=== PATIENT | female | born 1935 | race African-American/Black ===

== ENCOUNTER 2023-05-19 07:35 | Inpatient (IN) | payer OTHER ==
[2023-05-19 09:21] LABS: EPI CELLS 19 /uL (0-25.1); HYALINE CASTS 1 /uL (0-3.1); URINE APPEARANCE TURBID; URINE BACTERIA 2721 /uL (0-1359); URINE BILIRUBIN NEGATIVE (NEGATIVE); URINE COLOR ORANGE; URINE GLUCOSE (UA) NEGATIVE (NEGATIVE); URINE KETONE NEGATIVE (NEGATIVE); URINE LEUK ESTERASE 3+ (NEGATIVE); URINE NITRITE POSITIVE (NEGATIVE); URINE PROTEIN 3+ (NEGATIVE); URINE RBC 4374 /uL (0-23.9); URINE UROBILINOGEN 0.2 mg/dL (0.2-1.0); URINE WBC 3821 /uL (0-25.8)
[2023-05-19] MEDS ORDERED: CEFTRIAXONE 1 GM in DEXTROSE 5%-WATER - 100 ML IVPB ONE (11:10)
[2023-05-19] MEDS ORDERED: CEFTRIAXONE 1 GM/50 ML BAG ONE (11:20)
[2023-05-19 11:40] LABS: INR 1.8 (0.83-1.09); PROTHROMBIN TIME (PATIENT) 20.8 SEC (9.7-13.0)
[2023-05-19 11:51] LABS: POTASSIUM 5.6 mmol/L (3.5-5.1)
[2023-05-19 11:54] LABS: ALBUMIN 2.9 g/dl (3.4-5.0); BLOOD UREA NITROGEN 70.8 mg/dL (7-18); CALCIUM 8.3 mg/dL (8.5-10.1); MAGNESIUM 2.1 mg/dL (1.8-2.4)
[2023-05-19 11:57] LABS: PHOSPHOROUS 4.4 mg/dL (2.5-4.9)
[2023-05-19 11:59] LABS: BILIRUBIN,TOTAL 0.9 mg/dL (0.2-1); TOT PROT 6.7 g/dl (6.4-8.2)
[2023-05-19 12:31] LABS: BASO % 0.5 % (0-2.0); EOS % 2.5 % (0-4.5); HEMOGLOBIN 10.3 GM/dL (10.7-15.3); LYMPH % 27.1 % (8-40); MCH 28.5 pg (25.7-33.7); MCHC 31.4 g/dl (32.0-36.0); MEAN PLT VOLUME 9.3 fl (7.5-11.1); MONO % 19.6 % (3.8-10.2); NEUT % 50.3 % (42.8-82.8); PLATELET COUNT 260 10^3/uL (134-434); RBC 3.62 M/mm3 (3.60-5.2); WHITE BLOOD COUNT 4.2 K/mm3 (4.0-10.0)
[2023-05-19] MEDS ORDERED: SODIUM CHLORIDE 0.9% 500 ML INFUS.BAG IV ONE (13:31)
[2023-05-19] MEDS ORDERED: SODIUM ZIRCONIUM CYCLOSILICATE (LOKELMA) 5 GM PACKET PO ONE (14:41)
[2023-05-19] MEDS ORDERED: SODIUM ZIRCONIUM CYCLOSILICATE (LOKELMA) 10 GM PACKET ONE ×2 (14:49→16:04)
[2023-05-19] MEDS ORDERED: FUROSEMIDE 40 MG/4 ML INJECTABLE VIAL IVPUSH ONE (15:30)
[2023-05-19] MEDS ORDERED: FUROSEMIDE 40 MG/4 ML INJECTABLE VIAL ONE (16:05)
[2023-05-19 20:46] VITALS: BMI 21.1
[2023-05-20 07:55] LABS: BASO % 0.5 % (0-2.0); EOS % 3.6 % (0-4.5); HEMATOCRIT 31.2 % (32.4-45.2); HEMOGLOBIN 9.6 GM/dL (10.7-15.3); LYMPH % 23.2 % (8-40); MCH 27.9 pg (25.7-33.7); MCHC 30.8 g/dl (32.0-36.0); MEAN CELL VOLUME 90.8 fl (80-96); MEAN PLT VOLUME 9.3 fl (7.5-11.1); MONO % 19.7 % (3.8-10.2); PLATELET COUNT 288 10^3/uL (134-434); RBC 3.43 M/mm3 (3.60-5.2); RDW 17.7 % (11.6-15.6); WHITE BLOOD COUNT 4.4 K/mm3 (4.0-10.0)
[2023-05-20 08:23] LABS: CALCIUM 8.1 mg/dL (8.5-10.1)
[2023-05-20 08:24] LABS: ALBUMIN 2.5 g/dl (3.4-5.0)
[2023-05-20 08:27] LABS: CREATININE 3.4 mg/dL (0.55-1.3)
[2023-05-20 08:29] LABS: BILIRUBIN,TOTAL 0.5 mg/dL (0.2-1); TOT PROT 5.9 g/dl (6.4-8.2)
[2023-05-20] MEDS: CEFTRIAXONE 1 GM in DEXTROSE 5%-WATER - 50 ML IVPB SCH (09:17)
[2023-05-20] MEDS ORDERED: FUROSEMIDE 40 MG/4 ML INJECTABLE VIAL IVPUSH ONE (13:45)
[2023-05-20] MEDS ORDERED: SODIUM ZIRCONIUM CYCLOSILICATE (LOKELMA) 5 GM PACKET PO ONE (14:41)
[2023-05-20] MEDS ORDERED: HEPARIN NA (PORCINE) 5,000 UNITS/ML 1ML VIAL SQ SCH (22:00)
[2023-05-21 07:46] LABS: BASO % 0.6 % (0-2.0); EOS % 4.5 % (0-4.5); HEMATOCRIT 30.7 % (32.4-45.2); HEMOGLOBIN 9.5 GM/dL (10.7-15.3); MCH 28.1 pg (25.7-33.7); MEAN CELL VOLUME 90.6 fl (80-96); MEAN PLT VOLUME 9.1 fl (7.5-11.1); NEUT % 54.9 % (42.8-82.8); PLATELET COUNT 279 10^3/uL (134-434); RBC 3.38 M/mm3 (3.60-5.2); RDW 17.1 % (11.6-15.6); WHITE BLOOD COUNT 5.1 K/mm3 (4.0-10.0)
[2023-05-21 07:57] LABS: POTASSIUM 5.4 mmol/L (3.5-5.1)
[2023-05-21 08:01] LABS: CALCIUM 7.9 mg/dL (8.5-10.1)
[2023-05-21 08:02] LABS: ALBUMIN 2.4 g/dl (3.4-5.0); BLOOD UREA NITROGEN 59.6 mg/dL (7-18)
[2023-05-21 08:07] LABS: BILIRUBIN,TOTAL 0.4 mg/dL (0.2-1); TOT PROT 5.6 g/dl (6.4-8.2)
[2023-05-21] MEDS: CEFTRIAXONE 1 GM in DEXTROSE 5%-WATER - 50 ML IVPB SCH (09:42)
[2023-05-21] MEDS ORDERED: VANCOMYCIN 1,000 MG in DEXTROSE 5%-WATER - 250 ML IVPB ONE (16:23)
[2023-05-21] MEDS ORDERED: AMPICILLIN - 2 GM in SODIUM CHLORIDE 100 ML IVPB SCH (16:30)
[2023-05-21] MEDS ORDERED: DAPTOMYCIN 400 MG in SODIUM CHLORIDE 50 ML IVPB ONE (16:31)
[2023-05-21] MEDS ORDERED: DEXTROSE 5%-WATER - 1,000 ML IV SCH (16:45)
[2023-05-21] MEDS: DEXTROSE 5%-WATER - 1,000 ML IV SCH (18:01)
[2023-05-22] MEDS ORDERED: ACETAMINOPHEN 1000 MG/100 ML BAG IVPB ONE (03:39)
[2023-05-22] MEDS: DEXTROSE 5%-WATER - 1,000 ML IV SCH (06:01)
[2023-05-22] MEDS ORDERED: MIDAZOLAM HCL 2 MG/2 ML SINGLE DOSE VIAL ONE (06:47)
[2023-05-22] MEDS ORDERED: FENTANYL CITRATE/PF 50 MCG/ML VIAL ONE ×2 (06:47→08:18)
[2023-05-22] MEDS ORDERED: LIDOCAINE HCL/PF 2% SDV 5ML VIAL ONE (06:47)
[2023-05-22] MEDS ORDERED: PROPOFOL 20 ML ONE ×2 (06:47→07:21)
[2023-05-22] MEDS ORDERED: SODIUM CHLORIDE 0.9% P/F 10 ML VIAL IJ ONE (07:10)
[2023-05-22] MEDS ORDERED: LIDOCAINE HCL 2% JELLY 11 ML TP ONE (07:18)
[2023-05-22] MEDS ORDERED: DEXAMETHASONE SOD PHOSPHATE 4 MG/1 ML VIAL ONE (07:19)
[2023-05-22] MEDS ORDERED: ONDANSETRON 4 MG/2 ML VIAL ONE (07:19)
[2023-05-22] MEDS ORDERED: LABETALOL HCL 20 MG/4 ML VIAL ONE (07:22)
[2023-05-22] MEDS ORDERED: ONDANSETRON 4 MG/2 ML VIAL IVPUSH PRN (08:06)
[2023-05-22] MEDS ORDERED: SODIUM CHLORIDE 1,000 ML IV SCH (08:15)
[2023-05-22 08:16] LABS: POTASSIUM 4.6 mmol/L (3.5-5.1)
[2023-05-22] MEDS ORDERED: DEXTROSE 5%-WATER - 1,000 ML IV SCH (08:22)
[2023-05-22 08:24] LABS: ALBUMIN 2.5 g/dl (3.4-5.0)
[2023-05-22 08:25] LABS: BLOOD UREA NITROGEN 47.7 mg/dL (7-18)
[2023-05-22 08:27] LABS: CREATININE 2.5 mg/dL (0.55-1.3)
[2023-05-22 08:31] LABS: BILIRUBIN,TOTAL 0.7 mg/dL (0.2-1); TOT PROT 5.9 g/dl (6.4-8.2)
[2023-05-22] MEDS ORDERED: CEFTRIAXONE 1 GM in DEXTROSE 5%-WATER - 50 ML IVPB SCH (10:00)
[2023-05-22 12:07] LABS: BASO % 0.9 % (0-2.0); EOS % 0.7 % (0-4.5); HEMATOCRIT 34.9 % (32.4-45.2); HEMOGLOBIN 10.7 GM/dL (10.7-15.3); LYMPH % 7.2 % (8-40); MCHC 30.6 g/dl (32.0-36.0); MEAN CELL VOLUME 91.6 fl (80-96); NEUT % 83.2 % (42.8-82.8); RBC 3.81 M/mm3 (3.60-5.2); RDW 18.1 % (11.6-15.6); WHITE BLOOD COUNT 7.4 K/mm3 (4.0-10.0)
[2023-05-22] MEDS: SODIUM CHLORIDE 0.45% 1,000 ML IV SCH (17:42)
[2023-05-23] MEDS: DAPTOMYCIN 400 MG in SODIUM CHLORIDE 50 ML IVPB SCH (16:03)
[2023-05-23] MEDS: SODIUM CHLORIDE 0.45% 1,000 ML IV SCH (16:03)
[2023-05-23 16:26] LABS: BASO % 0.1 % (0-2.0); EOS % 0.5 % (0-4.5); HEMATOCRIT 30.4 % (32.4-45.2); HEMOGLOBIN 9.2 GM/dL (10.7-15.3); MCHC 30.3 g/dl (32.0-36.0); MEAN CELL VOLUME 92.2 fl (80-96); MONO % 18.6 % (3.8-10.2); NEUT % 66.8 % (42.8-82.8); PLATELET COUNT 249 10^3/uL (134-434); RDW 18.4 % (11.6-15.6); WHITE BLOOD COUNT 7.5 K/mm3 (4.0-10.0)
[2023-05-23 16:39] LABS: POTASSIUM 4.9 mmol/L (3.5-5.1)
[2023-05-23 16:42] LABS: CALCIUM 7.5 mg/dL (8.5-10.1)
[2023-05-23 16:43] LABS: ALBUMIN 2.2 g/dl (3.4-5.0); BLOOD UREA NITROGEN 55.8 mg/dL (7-18)
[2023-05-23 16:46] LABS: CREATININE 2.7 mg/dL (0.55-1.3)
[2023-05-23 16:47] LABS: BILIRUBIN,TOTAL 0.3 mg/dL (0.2-1); TOT PROT 5.6 g/dl (6.4-8.2)
[2023-05-24 06:52] VITALS: RESP 20
[2023-05-24] MEDS ORDERED: DAPTOMYCIN 400 MG in SODIUM CHLORIDE 50 ML IVPB SCH (16:00)
[2023-05-25] MEDS ORDERED: DAPTOMYCIN 400 MG in SODIUM CHLORIDE 50 ML IVPB ONE (10:47)
[2023-05-25] MEDS: DAPTOMYCIN 400 MG in SODIUM CHLORIDE 50 ML IVPB SCH (16:22)
[2023-05-25 18:27] VITALS: BP 144/56; PULSE 81; TEMP 97.8
== END 2023-05-25 21:59 | DRG 659 ==
LOC: JER 07:35 → JERBED 13:28 → J4W 20:51 → OBSVTOIN 05-20 09:58 → J4W 05-21 11:59
PROVIDERS: ADMIT Family Medicine; ATTEND Family Medicine
PROC: 0T788DZ Dilation of Bilateral Ureters with Intraluminal Device, Via Natural or Artificial Opening Endoscopic (ICD-10-PCS; principal; 2023-05-22 07:00)
PROC: BT14YZZ Fluoroscopy of Kidneys, Ureters and Bladder using Other Contrast (ICD-10-PCS; 2023-05-22 07:00)
PROC: 0TP98DZ Removal of Intraluminal Device from Ureter, Via Natural or Artificial Opening Endoscopic (ICD-10-PCS; 2023-05-22 07:00)
DX: N39.0 Urinary tract infection, site not specified (principal); I50.33 Acute on chronic diastolic (congestive) heart failure; E87.0 Hyperosmolality and hypernatremia; N17.9 Acute kidney failure, unspecified; R64 Cachexia; N13.30 Unspecified hydronephrosis; I11.0 Hypertensive heart disease with heart failure; E78.5 Hyperlipidemia, unspecified; I48.91 Unspecified atrial fibrillation; E87.5 Hyperkalemia; D64.9 Anemia, unspecified; Z68.21 Body mass index [BMI] 21.0-21.9, adult
CPT/HCPCS: 0241U-QW; 36415; 71045-TC-FY; 71250-TC; 74176-TC; 76000-TC-FY; 76775-TC; 80048; 80053; 81003; 82550; 82728; 83540; 83735; 84100; 84443; 84466; 84484; 85025; 85610; 85730; 87040; 87086; 87186; 87633; 87899; 88300-TC; 93005; 93010; 93306-TC; 94760; 99285-25; C2617; G0378; J0878

== ENCOUNTER 2023-05-30 03:28 | Inpatient (IN) | payer OTHER ==
[2023-05-30 05:00] LABS: CHLORIDE 112 mmol/L (98-107); SODIUM 139 mmol/L (136-145)
[2023-05-30 05:02] LABS: ALBUMIN 2.5 g/dl (3.4-5.0); CALCIUM 7.4 mg/dL (8.5-10.1); CO2 20 mmol/L (21-32); GLUCOSE,RANDOM 104 mg/dL (74-106)
[2023-05-30 05:05] LABS: CREATININE 4.7 mg/dL (0.55-1.3); SGOT/AST 34 U/L (15-37); SGPT/ALT 36 U/L (13-61)
[2023-05-30 05:07] LABS: BILIRUBIN,TOTAL 0.2 mg/dL (0.2-1); TOT PROT 5.8 g/dl (6.4-8.2)
[2023-05-30 05:09] LABS: ALK PHOS 164 U/L (45-117)
[2023-05-30] MEDS ORDERED: SODIUM CHLORIDE 0.9% 500 ML INFUS.BAG IV ONE (05:13)
[2023-05-30 05:20] LABS: ANION GAP 8 mmol/L (4-13); BLOOD UREA NITROGEN 87.9 mg/dL (7-18); POTASSIUM 6.2 mmol/L (3.5-5.1)
[2023-05-30 06:22] LABS: HEMATOCRIT 30.9 % (32.4-45.2); HEMOGLOBIN 9.5 GM/dL (10.7-15.3); MCH 28.3 pg (25.7-33.7); MCHC 30.9 g/dl (32.0-36.0); MEAN CELL VOLUME 91.5 fl (80-96); MEAN PLT VOLUME 9.4 fl (7.5-11.1); PLATELET COUNT 241 10^3/uL (134-434); RBC 3.37 M/mm3 (3.60-5.2); RDW 17.3 % (11.6-15.6); WHITE BLOOD COUNT 5.4 K/mm3 (4.0-10.0)
[2023-05-30 06:41] LABS: CALCIUM 7.6 mg/dL (8.5-10.1); CHLORIDE 113 mmol/L (98-107); CO2 20 mmol/L (21-32); SODIUM 141 mmol/L (136-145)
[2023-05-30 06:43] LABS: BLOOD UREA NITROGEN 88.1 mg/dL (7-18); GLUCOSE,RANDOM 96 mg/dL (74-106)
[2023-05-30 06:45] LABS: CREATININE 4.6 mg/dL (0.55-1.3)
[2023-05-30 06:56] LABS: ANION GAP 8 mmol/L (4-13); POTASSIUM 6.4 mmol/L (3.5-5.1)
[2023-05-30] MEDS ORDERED: DEXTROSE 50%-WATER - 25 GM/50 ML VIAL IVPUSH ONE (06:57)
[2023-05-30] MEDS ORDERED: INSULIN REGULAR HUMAN 100 UNITS/ML *VIAL IVPUSH ONE (06:57)
[2023-05-30] MEDS ORDERED: CALCIUM GLUCONATE 10% - 1,000 MG/10 ML VIAL IVPB ONE (06:58)
[2023-05-30] MEDS ORDERED: CALCIUM GLUC IN NACL, ISO-OSM 1 GM/50 ML BAG IVPB ONE (07:12)
[2023-05-30] MEDS ORDERED: DEXTROSE 50%-WATER 25 GM/50 ML DISP.SYRIN ONE (07:13)
[2023-05-30] MEDS ORDERED: INSULIN REGULAR HUMAN 100 UNITS/ML *VIAL ONE (07:14)
[2023-05-30 08:42] LABS: ANISOCYTOSIS 0; HELMET CELLS 0; HOWELL-JOLLY BODIES 0; MACROCYTOSIS 0; OVALOCYTE 0; ROULEAU 0; SICKELED CELLS 0; TARGET CELLS 0; TEAR DROP CELLS 0; TOXIC GRANULATION 0
[2023-05-30 09:01] LABS: PH,URINE 5.5 (5.0-8.0); URINE APPEARANCE TURBID; URINE BILIRUBIN NEGATIVE (NEGATIVE); URINE COLOR RED; URINE GLUCOSE (UA) NEGATIVE (NEGATIVE); URINE KETONE NEGATIVE (NEGATIVE); URINE PROTEIN 3+ (NEGATIVE); URINE UROBILINOGEN 0.2 mg/dL (0.2-1.0)
[2023-05-30 09:02] LABS: EPI CELLS 58 /uL (0-25.1); HYALINE CASTS 856 /uL (0-3.1); URINE BACTERIA 1317 /uL (0-1359); URINE LEUK ESTERASE 3+ (NEGATIVE); URINE NITRITE NEGATIVE (NEGATIVE); URINE RBC 3508 /uL (0-23.9); URINE WBC 23861 /uL (0-25.8)
[2023-05-30] MEDS: HEPARIN NA (PORCINE) 5,000 UNITS/ML 1ML VIAL SQ SCH ×2 (12:38→21:43)
[2023-05-30] MEDS ORDERED: HEPARIN NA (PORCINE) 5,000 UNITS/ML 1ML VIAL ONE (12:51)
[2023-05-30 13:01] LABS: POTASSIUM 5.9 mmol/L (3.5-5.1)
[2023-05-30 13:03] LABS: BLOOD UREA NITROGEN 86.3 mg/dL (7-18); CALCIUM 7.8 mg/dL (8.5-10.1)
[2023-05-30 13:06] LABS: CREATININE 4.5 mg/dL (0.55-1.3)
[2023-05-30 13:13] LABS: POTASSIUM 5.6 mmol/L (3.5-5.1)
[2023-05-30 13:14] LABS: CALCIUM 7.8 mg/dL (8.5-10.1)
[2023-05-30 13:16] LABS: BLOOD UREA NITROGEN 89.5 mg/dL (7-18)
[2023-05-30 13:19] LABS: CREATININE 4.5 mg/dL (0.55-1.3)
[2023-05-30] MEDS ORDERED: SODIUM ZIRCONIUM CYCLOSILICATE (LOKELMA) 10 GM PACKET ONE (13:51)
[2023-05-30] MEDS: SODIUM ZIRCONIUM CYCLOSILICATE (LOKELMA) 5 GM PACKET PO SCH (13:57)
[2023-05-30] MEDS ORDERED: CEFTRIAXONE 1 GM/50 ML BAG ONE (15:18)
[2023-05-30] MEDS: CEFTRIAXONE 1 GM in DEXTROSE 5%-WATER - 50 ML IVPB SCH (15:21)
[2023-05-30] MEDS ORDERED: ALBUTEROL SO4 2.5/IPRATROPIUM 0.5 INH SOL 3 ML VIAL.NEB. NEB ONE (20:27)
[2023-05-30] MEDS: ALBUTEROL SO4 2.5/IPRATROPIUM 0.5 INH SOL 3 ML VIAL.NEB. NEB SCH (20:30)
[2023-05-30] MEDS: ATORVASTATIN CA 20 MG TABLET (FP) PO SCH (21:43)
[2023-05-30] MEDS: cloNIDine HCL 0.1 MG TABLET PO SCH (21:43)
[2023-05-30] MEDS ORDERED: APIXABAN 2.5 MG TABLET PO SCH (22:00)
[2023-05-30] MEDS ORDERED: APIXABAN PO SCH (22:00)
[2023-05-30] MEDS ORDERED: [UNRECOGNIZED DRUG - OTHER] PO SCH (22:00)
[2023-05-30] MEDS ORDERED: ATORVASTATIN CALCIUM PO SCH (22:00)
[2023-05-30 23:31] VITALS: BMI 22.1
[2023-05-31] MEDS: ACETAMINOPHEN 325 MG TABLET (FP) PO PRN ×2 (01:40→11:58)
[2023-05-31] MEDS: ALBUTEROL SO4 2.5/IPRATROPIUM 0.5 INH SOL 3 ML VIAL.NEB. NEB SCH ×2 (07:00→21:00)
[2023-05-31 09:10] LABS: HEMATOCRIT 30.8 % (32.4-45.2); HEMOGLOBIN 9.5 GM/dL (10.7-15.3); MCHC 30.7 g/dl (32.0-36.0); MEAN CELL VOLUME 91.4 fl (80-96); MEAN PLT VOLUME 9.4 fl (7.5-11.1); PLATELET COUNT 232 10^3/uL (134-434); RBC 3.37 M/mm3 (3.60-5.2); RDW 17.1 % (11.6-15.6); WHITE BLOOD COUNT 4.5 K/mm3 (4.0-10.0)
[2023-05-31 09:33] LABS: POTASSIUM 5.4 mmol/L (3.5-5.1)
[2023-05-31 09:35] LABS: CALCIUM 8.5 mg/dL (8.5-10.1)
[2023-05-31 09:36] LABS: ALBUMIN 2.6 g/dl (3.4-5.0)
[2023-05-31 09:39] LABS: CREATININE 4.5 mg/dL (0.55-1.3)
[2023-05-31 09:40] LABS: BILIRUBIN,TOTAL 0.4 mg/dL (0.2-1); TOT PROT 6.1 g/dl (6.4-8.2)
[2023-05-31] MEDS: SODIUM ZIRCONIUM CYCLOSILICATE (LOKELMA) 5 GM PACKET PO SCH (10:13)
[2023-05-31] MEDS: CEFTRIAXONE 1 GM in DEXTROSE 5%-WATER - 50 ML IVPB SCH (10:13)
[2023-05-31] MEDS: METOPROLOL TARTRATE 25 MG TABLET (FP) PO SCH (10:14)
[2023-05-31] MEDS: HEPARIN NA (PORCINE) 5,000 UNITS/ML 1ML VIAL SQ SCH (10:14)
[2023-05-31] MEDS: cloNIDine HCL 0.1 MG TABLET PO SCH ×2 (10:14→21:46)
[2023-05-31 11:02] LABS: ANISOCYTOSIS 0; HELMET CELLS 0; HOWELL-JOLLY BODIES 0; MACROCYTOSIS 0; OVALOCYTE 0; ROULEAU 0; SICKELED CELLS 0; TARGET CELLS 0; TEAR DROP CELLS 0; TOXIC GRANULATION 0
[2023-05-31] MEDS: APIXABAN 2.5 MG TABLET PO SCH ×3 (12:33→21:46)
[2023-05-31] MEDS: ATORVASTATIN CA 20 MG TABLET (FP) PO SCH (21:46)
[2023-06-01] MEDS: ALBUTEROL SO4 2.5/IPRATROPIUM 0.5 INH SOL 3 ML VIAL.NEB. NEB SCH ×2 (07:48→20:05)
[2023-06-01 08:25] LABS: HEMATOCRIT 27.9 % (32.4-45.2); HEMOGLOBIN 8.8 GM/dL (10.7-15.3); MCH 28.5 pg (25.7-33.7); MCHC 31.4 g/dl (32.0-36.0); MEAN CELL VOLUME 90.8 fl (80-96); MEAN PLT VOLUME 9.4 fl (7.5-11.1); PLATELET COUNT 204 10^3/uL (134-434); RBC 3.08 M/mm3 (3.60-5.2); RDW 17.1 % (11.6-15.6); WHITE BLOOD COUNT 5.8 K/mm3 (4.0-10.0)
[2023-06-01 08:40] LABS: CHLORIDE 116 mmol/L (98-107); SODIUM 140 mmol/L (136-145)
[2023-06-01 08:48] LABS: CALCIUM 8.4 mg/dL (8.5-10.1)
[2023-06-01 08:49] LABS: CO2 20 mmol/L (21-32); GLUCOSE,RANDOM 97 mg/dL (74-106)
[2023-06-01 08:52] LABS: CREATININE 4.9 mg/dL (0.55-1.3)
[2023-06-01 08:55] LABS: ANION GAP 4 mmol/L (4-13); BLOOD UREA NITROGEN 105.4 mg/dL (7-18); POTASSIUM 6.4 mmol/L (3.5-5.1)
[2023-06-01] MEDS: SODIUM ZIRCONIUM CYCLOSILICATE (LOKELMA) 5 GM PACKET PO SCH ×3 (09:08→21:37)
[2023-06-01 09:35] LABS: ANISOCYTOSIS 1+; MACROCYTOSIS 1+; OVALOCYTE 2+
[2023-06-01] MEDS ORDERED: CALCIUM GLUCONATE 10% - 1,000 MG/10 ML VIAL IVPB ONE (10:43)
[2023-06-01] MEDS ORDERED: INSULIN REGULAR HUMAN 100 UNITS/ML *VIAL IVPUSH ONE (10:43)
[2023-06-01] MEDS ORDERED: DEXTROSE 50%-WATER 25 GM/50 ML DISP.SYRIN IVPUSH ONE (10:44)
[2023-06-01] MEDS ORDERED: SODIUM ZIRCONIUM CYCLOSILICATE (LOKELMA) 5 GM PACKET PO SCH (10:45)
[2023-06-01] MEDS ORDERED: SODIUM BICARBONATE 8.4% 50 MEQ/50 ML DISP.SYRIN IVPUSH ONE (10:45)
[2023-06-01] MEDS ORDERED: SODIUM BICARBONATE 8.4% 50 MEQ/50 ML VIAL IVPUSH ONE (11:15)
[2023-06-01] MEDS: APIXABAN 2.5 MG TABLET PO SCH (11:16)
[2023-06-01] MEDS: METOPROLOL TARTRATE 25 MG TABLET (FP) PO SCH (11:17)
[2023-06-01] MEDS: cloNIDine HCL 0.1 MG TABLET PO SCH (11:17)
[2023-06-01] MEDS: CEFTRIAXONE 1 GM in DEXTROSE 5%-WATER - 50 ML IVPB SCH (11:17)
[2023-06-01] MEDS: SODIUM CHLORIDE 0.45% 1,000 ML IV SCH (11:18)
[2023-06-01] MEDS ORDERED: INSULIN (NOVOLOG) ASPART 100 UNITS/ML 10ML VIAL ONE (11:22)
[2023-06-02] MEDS: APIXABAN 2.5 MG TABLET PO SCH ×3 (00:08→21:20)
[2023-06-02] MEDS: ATORVASTATIN CA 20 MG TABLET (FP) PO SCH ×2 (00:09→21:20)
[2023-06-02] MEDS: cloNIDine HCL 0.1 MG TABLET PO SCH ×3 (00:11→21:20)
[2023-06-02] MEDS: SODIUM CHLORIDE 0.45% 1,000 ML IV SCH ×2 (00:21→11:09)
[2023-06-02] MEDS: ALBUTEROL SO4 2.5/IPRATROPIUM 0.5 INH SOL 3 ML VIAL.NEB. NEB SCH ×2 (07:45→20:45)
[2023-06-02 08:30] LABS: HEMATOCRIT 27.9 % (32.4-45.2); HEMOGLOBIN 8.7 GM/dL (10.7-15.3); MCH 28.3 pg (25.7-33.7); MCHC 31.2 g/dl (32.0-36.0); MEAN CELL VOLUME 90.7 fl (80-96); MEAN PLT VOLUME 9.7 fl (7.5-11.1); PLATELET COUNT 203 10^3/uL (134-434); RBC 3.08 M/mm3 (3.60-5.2); RDW 17.4 % (11.6-15.6); WHITE BLOOD COUNT 4.7 K/mm3 (4.0-10.0)
[2023-06-02 08:50] LABS: POTASSIUM 5.6 mmol/L (3.5-5.1)
[2023-06-02 08:52] LABS: CALCIUM 7.8 mg/dL (8.5-10.1)
[2023-06-02 08:53] LABS: ALBUMIN 2.3 g/dl (3.4-5.0); BLOOD UREA NITROGEN 98.7 mg/dL (7-18)
[2023-06-02 08:56] LABS: CREATININE 4.5 mg/dL (0.55-1.3)
[2023-06-02 08:57] LABS: BILIRUBIN,TOTAL 0.3 mg/dL (0.2-1); TOT PROT 5.7 g/dl (6.4-8.2)
[2023-06-02 10:05] LABS: ANISOCYTOSIS 1+; MACROCYTOSIS 0; OVALOCYTE 1+
[2023-06-02] MEDS: SODIUM ZIRCONIUM CYCLOSILICATE (LOKELMA) 5 GM PACKET PO SCH ×2 (10:17→23:27)
[2023-06-02] MEDS: CEFTRIAXONE 1 GM in DEXTROSE 5%-WATER - 50 ML IVPB SCH (10:17)
[2023-06-02] MEDS ORDERED: AMPICILLIN - 2 GM in SODIUM CHLORIDE 100 ML IVPB SCH (10:45)
[2023-06-02] MEDS ORDERED: FLUCONAZOLE 200 MG/NS 100 ML IVPB ONE (11:00)
[2023-06-02] MEDS ORDERED: VANCOMYCIN/WATER FOR INJ (PEG) 1,000 MG/200 ML BAG IVPB ONE (15:30)
[2023-06-02] MEDS ORDERED: FUROSEMIDE 40 MG/4 ML INJECTABLE VIAL IVPUSH ONE (18:45)
[2023-06-03] MEDS: ALBUTEROL SO4 2.5/IPRATROPIUM 0.5 INH SOL 3 ML VIAL.NEB. NEB SCH ×2 (07:50→19:26)
[2023-06-03 08:57] LABS: ALBUMIN 2.3 g/dl (3.4-5.0); BLOOD UREA NITROGEN 92.1 mg/dL (7-18); CALCIUM 7.9 mg/dL (8.5-10.1)
[2023-06-03 09:00] LABS: CREATININE 4.3 mg/dL (0.55-1.3)
[2023-06-03 09:02] LABS: BILIRUBIN,TOTAL 0.4 mg/dL (0.2-1); TOT PROT 5.8 g/dl (6.4-8.2)
[2023-06-03] MEDS: cloNIDine HCL 0.1 MG TABLET PO SCH ×2 (11:02→21:37)
[2023-06-03] MEDS: SODIUM ZIRCONIUM CYCLOSILICATE (LOKELMA) 5 GM PACKET PO SCH (11:02)
[2023-06-03] MEDS: APIXABAN 2.5 MG TABLET PO SCH (11:03)
[2023-06-03] MEDS: SODIUM CHLORIDE 0.45% 1,000 ML IV SCH (11:03)
[2023-06-03] MEDS ORDERED: FUROSEMIDE 40 MG/4 ML INJECTABLE VIAL IVPUSH ONE (12:07)
[2023-06-03] MEDS ORDERED: VANCOMYCIN/WATER FOR INJ (PEG) 1,000 MG/200 ML BAG IVPB ONE (15:17)
[2023-06-03] MEDS: FLUCONAZOLE 100 MG/NS 50 ML IVPB SCH (17:53)
[2023-06-03] MEDS: ATORVASTATIN CA 20 MG TABLET (FP) PO SCH (21:37)
[2023-06-04] MEDS: ALBUTEROL SO4 2.5/IPRATROPIUM 0.5 INH SOL 3 ML VIAL.NEB. NEB SCH ×2 (07:35→20:04)
[2023-06-04] MEDS ORDERED: SODIUM ZIRCONIUM CYCLOSILICATE (LOKELMA) 5 GM PACKET PO SCH (10:00)
[2023-06-04] MEDS: cloNIDine HCL 0.1 MG TABLET PO SCH ×2 (10:16→21:16)
[2023-06-04] MEDS: FLUCONAZOLE 100 MG/NS 50 ML IVPB SCH (10:17)
[2023-06-04 18:25] VITALS: RESP 18
[2023-06-04] MEDS: ATORVASTATIN CA 20 MG TABLET (FP) PO SCH (21:16)
[2023-06-05 02:42] VITALS: BP 135/56; PULSE 60; TEMP 98.3
[2023-06-05] MEDS ORDERED: FLUCONAZOLE 50 MG TABLET PO SCH (10:00)
== END 2023-06-05 02:10 | DRG 690 ==
LOC: JER 03:28 → INTOOBSV 05:47 → JERBED 05:47 → UNDOADMOB 05:47 → OBSVTOIN 05:47 → JERBED 11:12 → OBSVTOIN 11:12 → J7W 20:57
PROVIDERS: ADMIT Family Medicine; ATTEND Family Medicine
DX: N13.6 Pyonephrosis (principal); I13.0 Hypertensive heart and chronic kidney disease with heart failure and stage 1 through stage 4 chronic kidney disease, or unspecified chronic kidney disease; I50.32 Chronic diastolic (congestive) heart failure; E87.0 Hyperosmolality and hypernatremia; E87.5 Hyperkalemia; I48.0 Paroxysmal atrial fibrillation; I27.20 Pulmonary hypertension, unspecified; N18.5 Chronic kidney disease, stage 5; N17.9 Acute kidney failure, unspecified; M10.9 Gout, unspecified; B95.2 Enterococcus as the cause of diseases classified elsewhere
CPT/HCPCS: 36415; 74176-TC; 80048; 80053; 81003; 82728; 82962; 83540; 83550; 83735; 85025; 87040; 87077; 87086; 87186; 93005; 93010; 94640; 97116-GP; 97161-GP; 99285-25; G0463; G0480; J1644

== ENCOUNTER 2023-06-18 13:42 | Inpatient (IN) | payer OTHER ==
[2023-06-18 16:50] LABS: HEMATOCRIT 32.5 % (32.4-45.2); HEMOGLOBIN 9.9 GM/dL (10.7-15.3); MCH 27.9 pg (25.7-33.7); MCHC 30.5 g/dl (32.0-36.0); MEAN CELL VOLUME 91.6 fl (80-96); MEAN PLT VOLUME 8.7 fl (7.5-11.1); PLATELET COUNT 237 10^3/uL (134-434); RBC 3.54 M/mm3 (3.60-5.2); RDW 18.2 % (11.6-15.6); VENOUS BASE EXCESS -9.9 mmol/L (-2-2); VENOUS PCO2 48.8 mmHg (38-52); WHITE BLOOD COUNT 4.2 K/mm3 (4.0-10.0)
[2023-06-18 16:51] LABS: VENOUS PH 7.186 (7.310-7.410)
[2023-06-18 17:00] LABS: INR 1.11 (0.83-1.09); PROTHROMBIN TIME (PATIENT) 12.9 SEC (9.7-13.0)
[2023-06-18 17:02] LABS: ACTIVATED PTT 27.5 SECONDS (25.2-36.5)
[2023-06-18 17:08] LABS: CHLORIDE 118 mmol/L (98-107); POTASSIUM 5.4 mmol/L (3.5-5.1); SODIUM 145 mmol/L (136-145)
[2023-06-18 17:10] LABS: ALBUMIN 2.6 g/dl (3.4-5.0); ANION GAP 9 mmol/L (4-13); CO2 18 mmol/L (21-32); GLUCOSE,RANDOM 103 mg/dL (74-106); MAGNESIUM 2.2 mg/dL (1.8-2.4)
[2023-06-18 17:13] LABS: SGOT/AST 32 U/L (15-37); SGPT/ALT 28 U/L (13-61)
[2023-06-18 17:15] LABS: BILIRUBIN,TOTAL 0.4 mg/dL (0.2-1); TOT PROT 6.6 g/dl (6.4-8.2)
[2023-06-18 17:17] LABS: ALK PHOS 116 U/L (45-117)
[2023-06-18 17:41] LABS: ANISOCYTOSIS 2+; MACROCYTOSIS 0; OVALOCYTE 2+
[2023-06-18 18:33] VITALS: BMI 26.5
[2023-06-18] MEDS: FUROSEMIDE 40 MG/4 ML INJECTABLE VIAL IVPUSH SCH (18:35)
[2023-06-18] MEDS: ASPIRIN COATED 81 MG TABLET.EC PO SCH (18:35)
[2023-06-18] MEDS ORDERED: FUROSEMIDE 40 MG/4 ML INJECTABLE VIAL ONE (18:38)
[2023-06-18] MEDS ORDERED: ASPIRIN COATED 81 MG TABLET.EC ONE (18:38)
[2023-06-18 18:43] LABS: EPI CELLS 34 /uL (0-25.1); HYALINE CASTS 356 /uL (0-3.1); URINE APPEARANCE TURBID; URINE BILIRUBIN 1+ (NEGATIVE); URINE COLOR RED; URINE GLUCOSE (UA) NEGATIVE (NEGATIVE); URINE KETONE NEGATIVE (NEGATIVE); URINE LEUK ESTERASE 3+ (NEGATIVE); URINE NITRITE POSITIVE (NEGATIVE); URINE PROTEIN 3+ (NEGATIVE); URINE UROBILINOGEN 0.2 mg/dL (0.2-1.0); URINE WBC 8053 /uL (0-25.8)
[2023-06-18 19:32] LABS: URINE RBC 35418 /uL (0-23.9)
[2023-06-18 19:33] LABS: URINE BACTERIA 0.9 /uL (0-1359); YEAST FEW (NEGATIVE)
[2023-06-18] MEDS ORDERED: SODIUM ZIRCONIUM CYCLOSILICATE (LOKELMA) 10 GM PACKET ONE (23:24)
[2023-06-18] MEDS ORDERED: ATORVASTATIN CA 40 MG TABLET (FP) ONE (23:24)
[2023-06-18] MEDS: ATORVASTATIN CA 40 MG TABLET (FP) PO SCH (23:37)
[2023-06-18] MEDS: SODIUM ZIRCONIUM CYCLOSILICATE (LOKELMA) 5 GM PACKET PO SCH (23:37)
[2023-06-19] MEDS ORDERED: PIPERACILLIN/TAZOB 2.25 GM 2.25 GM/50 ML BAG IVPB ONE (07:58)
[2023-06-19] MEDS: PIPERACILLIN/TAZOB 2.25 GM 2.25 GM in DEXTROSE 5%-WATER - 50 ML IVPB SCH ×4 (09:10→18:25)
[2023-06-19] MEDS: ASPIRIN COATED 81 MG TABLET.EC PO SCH (11:19)
[2023-06-19] MEDS: FUROSEMIDE 40 MG/4 ML INJECTABLE VIAL IVPUSH SCH (11:39)
[2023-06-19] MEDS: SODIUM ZIRCONIUM CYCLOSILICATE (LOKELMA) 5 GM PACKET PO SCH (11:40)
[2023-06-19] MEDS ORDERED: FUROSEMIDE 40 MG/4 ML INJECTABLE VIAL ONE (11:41)
[2023-06-19] MEDS ORDERED: SODIUM ZIRCONIUM CYCLOSILICATE (LOKELMA) 10 GM PACKET ONE (11:41)
[2023-06-19] MEDS ORDERED: FLUCONAZOLE 200 MG/NS 100 ML IVPB ONE (17:25)
[2023-06-19] MEDS ORDERED: VANCOMYCIN/WATER FOR INJ (PEG) 1,000 MG/200 ML BAG IVPB ONE (17:30)
[2023-06-19] MEDS: ATORVASTATIN CA 40 MG TABLET (FP) PO SCH (22:07)
[2023-06-20] MEDS: PIPERACILLIN/TAZOB 2.25 GM 2.25 GM in DEXTROSE 5%-WATER - 50 ML IVPB SCH ×3 (02:21→17:46)
[2023-06-20] MEDS: SODIUM ZIRCONIUM CYCLOSILICATE (LOKELMA) 5 GM PACKET PO SCH (10:03)
[2023-06-20] MEDS: ASPIRIN COATED 81 MG TABLET.EC PO SCH (10:03)
[2023-06-20] MEDS: FUROSEMIDE 40 MG/4 ML INJECTABLE VIAL IVPUSH SCH (10:04)
[2023-06-20 19:17] LABS: CHLORIDE 120 mmol/L (98-107); POTASSIUM 4.9 mmol/L (3.5-5.1); SODIUM 151 mmol/L (136-145)
[2023-06-20 19:18] LABS: ANION GAP 7 mmol/L (4-13); CALCIUM 7.8 mg/dL (8.5-10.1); CO2 23 mmol/L (21-32); GLUCOSE,RANDOM 148 mg/dL (74-106)
[2023-06-20 19:22] LABS: CREATININE 4.1 mg/dL (0.55-1.3)
[2023-06-20 19:39] LABS: BLOOD UREA NITROGEN 104.5 mg/dL (7-18)
[2023-06-20] MEDS: ATORVASTATIN CA 40 MG TABLET (FP) PO SCH (21:13)
[2023-06-21] MEDS: PIPERACILLIN/TAZOB 2.25 GM 2.25 GM in DEXTROSE 5%-WATER - 50 ML IVPB SCH ×3 (01:13→17:19)
[2023-06-21] MEDS: ASPIRIN COATED 81 MG TABLET.EC PO SCH (09:26)
[2023-06-21] MEDS: FUROSEMIDE 40 MG/4 ML INJECTABLE VIAL IVPUSH SCH (09:26)
[2023-06-21] MEDS: SODIUM ZIRCONIUM CYCLOSILICATE (LOKELMA) 5 GM PACKET PO SCH (09:27)
[2023-06-21] MEDS ORDERED: FLUCONAZOLE 100 MG/NS 50 ML IVPB ONE (10:00)
[2023-06-21] MEDS: ATORVASTATIN CA 40 MG TABLET (FP) PO SCH (21:10)
[2023-06-22] MEDS: PIPERACILLIN/TAZOB 2.25 GM 2.25 GM in DEXTROSE 5%-WATER - 50 ML IVPB SCH ×3 (02:04→17:22)
[2023-06-22] MEDS: SODIUM ZIRCONIUM CYCLOSILICATE (LOKELMA) 5 GM PACKET PO SCH ×3 (10:44→14:19)
[2023-06-22] MEDS: ASPIRIN COATED 81 MG TABLET.EC PO SCH ×3 (10:44→14:11)
[2023-06-22 15:36] LABS: BASO % 0.6 % (0-2.0); EOS % 1.3 % (0-4.5); HEMATOCRIT 30.4 % (32.4-45.2); HEMOGLOBIN 9.2 GM/dL (10.7-15.3); LYMPH % 16.5 % (8-40); MCH 27.7 pg (25.7-33.7); MCHC 30.3 g/dl (32.0-36.0); MEAN CELL VOLUME 91.2 fl (80-96); MEAN PLT VOLUME 8.4 fl (7.5-11.1); MONO % 14.9 % (3.8-10.2); NEUT % 66.7 % (42.8-82.8); PLATELET COUNT 230 10^3/uL (134-434); RBC 3.34 M/mm3 (3.60-5.2); RDW 17.8 % (11.6-15.6); WHITE BLOOD COUNT 7.2 K/mm3 (4.0-10.0)
[2023-06-22 15:57] LABS: POTASSIUM 4.5 mmol/L (3.5-5.1)
[2023-06-22 16:00] LABS: ALBUMIN 2.3 g/dl (3.4-5.0); BLOOD UREA NITROGEN 90.5 mg/dL (7-18); CALCIUM 8.3 mg/dL (8.5-10.1)
[2023-06-22 16:03] LABS: CREATININE 3.9 mg/dL (0.55-1.3)
[2023-06-22 16:05] LABS: BILIRUBIN,TOTAL 0.7 mg/dL (0.2-1); TOT PROT 6.1 g/dl (6.4-8.2)
[2023-06-22] MEDS: ATORVASTATIN CA 40 MG TABLET (FP) PO SCH (21:56)
[2023-06-23] MEDS: PIPERACILLIN/TAZOB 2.25 GM 2.25 GM in DEXTROSE 5%-WATER - 50 ML IVPB SCH ×3 (01:52→17:50)
[2023-06-23 08:50] LABS: BASO % 0.5 % (0-2.0); EOS % 1.3 % (0-4.5); HEMATOCRIT 30.1 % (32.4-45.2); LYMPH % 17.1 % (8-40); MCH 27.1 pg (25.7-33.7); MCHC 29.9 g/dl (32.0-36.0); MEAN CELL VOLUME 90.8 fl (80-96); MEAN PLT VOLUME 8.5 fl (7.5-11.1); MONO % 12.4 % (3.8-10.2); NEUT % 68.7 % (42.8-82.8); PLATELET COUNT 207 10^3/uL (134-434); RBC 3.31 M/mm3 (3.60-5.2); RDW 17.9 % (11.6-15.6); WHITE BLOOD COUNT 6.7 K/mm3 (4.0-10.0)
[2023-06-23 09:14] LABS: POTASSIUM 4.5 mmol/L (3.5-5.1)
[2023-06-23 09:21] LABS: ALBUMIN 2.3 g/dl (3.4-5.0); BLOOD UREA NITROGEN 95.6 mg/dL (7-18); CALCIUM 8.7 mg/dL (8.5-10.1)
[2023-06-23 09:24] LABS: CREATININE 3.7 mg/dL (0.55-1.3)
[2023-06-23 09:25] LABS: BILIRUBIN,TOTAL 0.7 mg/dL (0.2-1); TOT PROT 6.2 g/dl (6.4-8.2)
[2023-06-23] MEDS: ASPIRIN COATED 81 MG TABLET.EC PO SCH (10:32)
[2023-06-23] MEDS: SODIUM ZIRCONIUM CYCLOSILICATE (LOKELMA) 5 GM PACKET PO SCH (10:36)
[2023-06-23] MEDS: DEXTROSE 5%-WATER - 1,000 ML IV SCH (14:54)
[2023-06-23] MEDS ORDERED: FLUCONAZOLE 100 MG/NS 50 ML IVPB SCH (17:30)
[2023-06-23] MEDS: FLUCONAZOLE 100 MG/NS 50 ML IVPB SCH ×2 (19:31→20:05)
[2023-06-23] MEDS: ATORVASTATIN CA 40 MG TABLET (FP) PO SCH (21:10)
[2023-06-24] MEDS: PIPERACILLIN/TAZOB 2.25 GM 2.25 GM in DEXTROSE 5%-WATER - 50 ML IVPB SCH ×3 (02:18→19:14)
[2023-06-24] MEDS: FLUCONAZOLE 100 MG/NS 50 ML IVPB SCH ×2 (10:00→13:58)
[2023-06-24] MEDS: SODIUM ZIRCONIUM CYCLOSILICATE (LOKELMA) 5 GM PACKET PO SCH (10:49)
[2023-06-24] MEDS: DEXTROSE 5%-WATER - 1,000 ML IV SCH (20:18)
[2023-06-24] MEDS: ATORVASTATIN CA 40 MG TABLET (FP) PO SCH (21:41)
[2023-06-25] MEDS: PIPERACILLIN/TAZOB 2.25 GM 2.25 GM in DEXTROSE 5%-WATER - 50 ML IVPB SCH (02:48)
[2023-06-25 08:28] LABS: HEMATOCRIT 30.3 % (32.4-45.2); HEMOGLOBIN 9.1 GM/dL (10.7-15.3); MCH 27.3 pg (25.7-33.7); MCHC 29.9 g/dl (32.0-36.0); MEAN CELL VOLUME 91.4 fl (80-96); MEAN PLT VOLUME 9.6 fl (7.5-11.1); PLATELET COUNT 231 10^3/uL (134-434); RBC 3.31 M/mm3 (3.60-5.2); RDW 17.7 % (11.6-15.6); WHITE BLOOD COUNT 9.1 K/mm3 (4.0-10.0)
[2023-06-25 08:30] LABS: POTASSIUM 4.1 mmol/L (3.5-5.1)
[2023-06-25 08:37] LABS: CALCIUM 8.6 mg/dL (8.5-10.1)
[2023-06-25 08:38] LABS: ALBUMIN 2.3 g/dl (3.4-5.0); BLOOD UREA NITROGEN 74.3 mg/dL (7-18)
[2023-06-25 08:40] LABS: CREATININE 3.3 mg/dL (0.55-1.3)
[2023-06-25 08:41] LABS: BILIRUBIN,TOTAL 0.7 mg/dL (0.2-1); TOT PROT 6.6 g/dl (6.4-8.2)
[2023-06-25] MEDS: SODIUM ZIRCONIUM CYCLOSILICATE (LOKELMA) 5 GM PACKET PO SCH (10:07)
[2023-06-25] MEDS ORDERED: SODIUM CHLORIDE 500 ML IV SCH (13:30)
[2023-06-25] MEDS ORDERED: FENTANYL CITRATE/PF 50 MCG/ML VIAL IVPUSH ONE ×2 (13:44→14:05)
[2023-06-25] MEDS: DEXTROSE 5%-WATER - 1,000 ML IV SCH (15:18)
[2023-06-25] MEDS: ATORVASTATIN CA 40 MG TABLET (FP) PO SCH (21:57)
[2023-06-26] MEDS: SODIUM ZIRCONIUM CYCLOSILICATE (LOKELMA) 5 GM PACKET PO SCH (10:44)
[2023-06-26] MEDS: DEXTROSE 5%-WATER - 1,000 ML IV SCH (15:46)
[2023-06-26] MEDS: ATORVASTATIN CA 40 MG TABLET (FP) PO SCH (21:01)
[2023-06-27] MEDS: SODIUM ZIRCONIUM CYCLOSILICATE (LOKELMA) 5 GM PACKET PO SCH (10:12)
[2023-06-27 11:59] LABS: BASO % 0.3 % (0-2.0); EOS % 0.6 % (0-4.5); HEMATOCRIT 26.5 % (32.4-45.2); HEMOGLOBIN 8.1 GM/dL (10.7-15.3); LYMPH % 10.5 % (8-40); MCH 27.9 pg (25.7-33.7); MCHC 30.5 g/dl (32.0-36.0); MEAN CELL VOLUME 91.3 fl (80-96); MONO % 9.2 % (3.8-10.2); NEUT % 79.4 % (42.8-82.8); PLATELET COUNT 240 10^3/uL (134-434); RBC 2.91 M/mm3 (3.60-5.2); RDW 18.2 % (11.6-15.6); WHITE BLOOD COUNT 8.1 K/mm3 (4.0-10.0)
[2023-06-27 12:17] LABS: POTASSIUM 4.2 mmol/L (3.5-5.1)
[2023-06-27 12:18] LABS: CALCIUM 8.7 mg/dL (8.5-10.1)
[2023-06-27 12:19] LABS: BLOOD UREA NITROGEN 70.3 mg/dL (7-18)
[2023-06-27 12:22] LABS: CREATININE 2.8 mg/dL (0.55-1.3)
[2023-06-27] MEDS: ATORVASTATIN CA 40 MG TABLET (FP) PO SCH (21:23)
[2023-06-28 08:39] LABS: POTASSIUM 4.4 mmol/L (3.5-5.1)
[2023-06-28 08:42] LABS: BLOOD UREA NITROGEN 61.2 mg/dL (7-18); CALCIUM 7.6 mg/dL (8.5-10.1)
[2023-06-28 08:46] LABS: CREATININE 2.6 mg/dL (0.55-1.3)
[2023-06-28 08:48] LABS: BILIRUBIN,TOTAL 0.4 mg/dL (0.2-1); TOT PROT 5.5 g/dl (6.4-8.2)
[2023-06-28] MEDS: DEXTROSE 5%-WATER - 1,000 ML IV SCH ×2 (12:26→22:22)
[2023-06-28] MEDS: SODIUM ZIRCONIUM CYCLOSILICATE (LOKELMA) 5 GM PACKET PO SCH (12:26)
[2023-06-28] MEDS: ATORVASTATIN CA 40 MG TABLET (FP) PO SCH (22:19)
[2023-06-29 07:59] VITALS: RESP 18
[2023-06-29 09:01] LABS: POTASSIUM 4.7 mmol/L (3.5-5.1)
[2023-06-29 09:03] LABS: CALCIUM 7.8 mg/dL (8.5-10.1)
[2023-06-29 09:04] LABS: ALBUMIN 2.1 g/dl (3.4-5.0); BLOOD UREA NITROGEN 60.9 mg/dL (7-18)
[2023-06-29 09:07] LABS: CREATININE 2.8 mg/dL (0.55-1.3)
[2023-06-29 09:08] LABS: TOT PROT 5.7 g/dl (6.4-8.2)
[2023-06-29 09:09] LABS: BILIRUBIN,TOTAL 0.4 mg/dL (0.2-1)
[2023-06-29] MEDS: SODIUM ZIRCONIUM CYCLOSILICATE (LOKELMA) 5 GM PACKET PO SCH (10:06)
[2023-06-29 14:50] VITALS: BP 117/89; PULSE 85; TEMP 98.2
== END 2023-06-29 18:01 | DRG 291 ==
LOC: JER 13:42 → JERBED 15:09 → J4S 06-19 13:34
PROVIDERS: ADMIT Internal Medicine; ATTEND Internal Medicine
PROC: 0T9130Z Drainage of Left Kidney with Drainage Device, Percutaneous Approach (ICD-10-PCS; principal; 2023-06-25)
PROC: 0T9330Z Drainage of Right Kidney Pelvis with Drainage Device, Percutaneous Approach (ICD-10-PCS; 2023-06-25)
DX: I13.2 Hypertensive heart and chronic kidney disease with heart failure and with stage 5 chronic kidney disease, or end stage renal disease (principal); I50.33 Acute on chronic diastolic (congestive) heart failure; J12.1 Respiratory syncytial virus pneumonia; N18.5 Chronic kidney disease, stage 5; J21.0 Acute bronchiolitis due to respiratory syncytial virus; N13.30 Unspecified hydronephrosis; N17.9 Acute kidney failure, unspecified; N39.0 Urinary tract infection, site not specified; E87.0 Hyperosmolality and hypernatremia; I48.0 Paroxysmal atrial fibrillation; E78.5 Hyperlipidemia, unspecified; E87.70 Fluid overload, unspecified; F03.90 Unspecified dementia, unspecified severity, without behavioral disturbance, psychotic disturbance, mood disturbance, and anxiety; R31.0 Gross hematuria
CPT/HCPCS: 0241U-QW; 36415; 50432; 71045-TC-FY; 71046-TC-FY; 76775-TC; 80048; 80053; 81003; 82803; 83735; 84484; 85025; 85027; 85610; 85730; 86850; 86900; 86901; 87040; 87070; 87075; 87077; 87086; 87102; 87106; 87116; 87205; 87206; 87210; 93005; 93010; 94761; 99285-25

== ENCOUNTER 2023-08-10 14:56 | Inpatient (IN) | payer OTHER ==
[2023-08-10 18:26] LABS: EPI CELLS 23 /uL (0-25.1); HYALINE CASTS 2 /uL (0-3.1); PH,URINE 6.5 (5.0-8.0); URINE APPEARANCE TURBID; URINE BACTERIA 8690 /uL (0-1359); URINE BILIRUBIN NEGATIVE (NEGATIVE); URINE COLOR ORANGE; URINE GLUCOSE (UA) NEGATIVE (NEGATIVE); URINE KETONE NEGATIVE (NEGATIVE); URINE LEUK ESTERASE 3+ (NEGATIVE); URINE NITRITE NEGATIVE (NEGATIVE); URINE PROTEIN 3+ (NEGATIVE); URINE RBC 1759 /uL (0-23.9); URINE UROBILINOGEN 0.2 mg/dL (0.2-1.0); URINE WBC 13636 /uL (0-25.8)
[2023-08-10 18:41] LABS: BASO % 0.8 % (0-2.0); EOS % 0.7 % (0-4.5); HEMATOCRIT 23.7 % (32.4-45.2); HEMOGLOBIN 7.1 GM/dL (10.7-15.3); LYMPH % 12.3 % (8-40); MCH 25.3 pg (25.7-33.7); MCHC 29.9 g/dl (32.0-36.0); MEAN CELL VOLUME 84.7 fl (80-96); MEAN PLT VOLUME 8.3 fl (7.5-11.1); MONO % 17.9 % (3.8-10.2); NEUT % 68.3 % (42.8-82.8); PLATELET COUNT 279 10^3/uL (134-434); RBC 2.79 M/mm3 (3.60-5.2); RDW 18.8 % (11.6-15.6); WHITE BLOOD COUNT 6.7 K/mm3 (4.0-10.0)
[2023-08-10 18:48] LABS: INR 1.04 (0.83-1.09); PROTHROMBIN TIME (PATIENT) 12.1 SEC (9.7-13.0)
[2023-08-10 18:52] LABS: ACTIVATED PTT 28.4 SECONDS (25.2-36.5)
[2023-08-10] MEDS ORDERED: PIPERACILLIN/TAZOB 4.5 GM 4.5 GM/100 ML BAG IVPB ONE (18:57)
[2023-08-10] MEDS: PIPERACILLIN/TAZOB 4.5 GM 4.5 GM in DEXTROSE 5%-WATER 100 ML IVPB ONE (19:00)
[2023-08-10 19:06] LABS: POTASSIUM 4.5 mmol/L (3.5-5.1)
[2023-08-10 19:09] LABS: CALCIUM 8.4 mg/dL (8.5-10.1)
[2023-08-10 19:10] LABS: ALBUMIN 2.6 g/dl (3.4-5.0); BLOOD UREA NITROGEN 92.7 mg/dL (7-18); MAGNESIUM 2.5 mg/dL (1.8-2.4)
[2023-08-10] MEDS ORDERED: VANCOMYCIN 1 GRAM (PRE-DOCKED) 1,000 MG/250 ML BAG IVPB ONE (19:12)
[2023-08-10 19:13] LABS: CREATININE 3.3 mg/dL (0.55-1.3)
[2023-08-10 19:14] LABS: TOT PROT 6.2 g/dl (6.4-8.2)
[2023-08-10 19:15] LABS: BILIRUBIN,TOTAL 0.3 mg/dL (0.2-1)
[2023-08-10 19:18] LABS: N-TERMINAL BNP 13572.6 pg/ml (5-450)
[2023-08-10] MEDS: VANCOMYCIN 1,000 MG in DEXTROSE 5%-WATER - 250 ML IVPB ONE (19:21)
[2023-08-11] MEDS ORDERED: PIPERACILLIN/TAZOB 2.25 GM 2.25 GM in DEXTROSE 5%-WATER - 50 ML IVPB SCH (02:00)
[2023-08-11] MEDS ORDERED: PIPERACILLIN/TAZOB 2.25 GM 2.25 GM/50 ML BAG IVPB ONE ×2 (03:40→09:04)
[2023-08-11] MEDS: PIPERACILLIN/TAZOB 2.25 GM 2.25 GM in DEXTROSE 5%-WATER - 50 ML IVPB SCH (03:55)
[2023-08-11] MEDS ORDERED: ALBUTEROL SO4 2.5/IPRATROPIUM 0.5 INH SOL 3 ML VIAL.NEB. NEB ONE (08:03)
[2023-08-11] MEDS: ALBUTEROL SO4 2.5/IPRATROPIUM 0.5 INH SOL 3 ML VIAL.NEB. NEB SCH (08:03)
[2023-08-11] MEDS ORDERED: AMPICILLIN NA/SULBACTAM NA 3 GM in DEXTROSE 5%-WATER 100 ML IVPB SCH (09:00)
[2023-08-11] MEDS ORDERED: cloNIDine HCL 0.1 MG TABLET ONE (09:04)
[2023-08-11] MEDS: cloNIDine HCL 0.1 MG TABLET PO SCH (09:05)
[2023-08-11 11:43] LABS: BASO % 0.6 % (0-2.0); EOS % 1.2 % (0-4.5); HEMATOCRIT 23.9 % (32.4-45.2); MCH 25.2 pg (25.7-33.7); MCHC 28.8 g/dl (32.0-36.0); MEAN CELL VOLUME 87.5 fl (80-96); MEAN PLT VOLUME 8.3 fl (7.5-11.1); MONO % 17.1 % (3.8-10.2); NEUT % 70.1 % (42.8-82.8); PLATELET COUNT 267 10^3/uL (134-434); RBC 2.73 M/mm3 (3.60-5.2); RDW 18.6 % (11.6-15.6); WHITE BLOOD COUNT 6.5 K/mm3 (4.0-10.0)
[2023-08-11] MEDS: FUROSEMIDE 40 MG/4 ML INJECTABLE VIAL IVPUSH ONE (11:50)
[2023-08-11 11:51] LABS: POTASSIUM 5.2 mmol/L (3.5-5.1)
[2023-08-11 11:58] LABS: CALCIUM 8.6 mg/dL (8.5-10.1)
[2023-08-11 11:59] LABS: BLOOD UREA NITROGEN 91.1 mg/dL (7-18)
[2023-08-11 12:02] LABS: CREATININE 3.3 mg/dL (0.55-1.3)
[2023-08-11 12:03] LABS: PHOSPHOROUS 5.8 mg/dL (2.5-4.9)
[2023-08-11 12:31] LABS: HEMOGLOBIN 6.9 GM/dL (10.7-15.3)
[2023-08-11] MEDS ORDERED: SODIUM ZIRCONIUM CYCLOSILICATE (LOKELMA) 10 GM PACKET ONE (16:37)
[2023-08-11] MEDS ORDERED: FUROSEMIDE 40 MG/4 ML INJECTABLE VIAL ONE (16:37)
[2023-08-11] MEDS: SODIUM ZIRCONIUM CYCLOSILICATE (LOKELMA) 5 GM PACKET PO SCH (16:43)
[2023-08-11] MEDS: FUROSEMIDE 40 MG/4 ML INJECTABLE VIAL IVPUSH SCH (16:43)
[2023-08-11] MEDS: ATORVASTATIN CA 20 MG TABLET (FP) PO SCH (22:52)
[2023-08-11] MEDS: HEPARIN NA (PORCINE) 5,000 UNITS/ML 1ML VIAL SQ SCH (22:52)
[2023-08-12 09:42] LABS: HEMATOCRIT 27.6 % (32.4-45.2); HEMOGLOBIN 8.6 GM/dL (10.7-15.3); MCH 26.7 pg (25.7-33.7); MCHC 31.3 g/dl (32.0-36.0); MEAN CELL VOLUME 85.3 fl (80-96); MEAN PLT VOLUME 8.2 fl (7.5-11.1); PLATELET COUNT 240 10^3/uL (134-434); RBC 3.23 M/mm3 (3.60-5.2); RDW 17.8 % (11.6-15.6); WHITE BLOOD COUNT 8.2 K/mm3 (4.0-10.0)
[2023-08-12 10:02] LABS: POTASSIUM 5.1 mmol/L (3.5-5.1)
[2023-08-12 10:05] LABS: BLOOD UREA NITROGEN 88.8 mg/dL (7-18)
[2023-08-12 10:06] LABS: ALBUMIN 2.5 g/dl (3.4-5.0)
[2023-08-12 10:07] LABS: CALCIUM 8.6 mg/dL (8.5-10.1)
[2023-08-12 10:09] LABS: TOT PROT 6.1 g/dl (6.4-8.2)
[2023-08-12 10:10] LABS: BILIRUBIN,TOTAL 0.9 mg/dL (0.2-1); CREATININE 3.2 mg/dL (0.55-1.3)
[2023-08-12] MEDS: PIPERACILLIN/TAZOB 2.25 GM 2.25 GM in DEXTROSE 5%-WATER - 50 ML IVPB SCH ×2 (12:06→18:55)
[2023-08-12] MEDS: MEROPENEM 500 MG in DEXTROSE 5%-WATER 100 ML IVPB SCH (12:59)
[2023-08-12] MEDS: VANCOMYCIN/WATER FOR INJ (PEG) 1,000 MG/200 ML BAG IVPB ONE (13:43)
[2023-08-12] MEDS: AMINO ACIDS 4.25%/D5W 1,000 ML IV SCH (15:46)
[2023-08-12] MEDS ORDERED: VANCOMYCIN 1,000 MG in DEXTROSE 5%-WATER - 250 ML IVPB SCH (18:00)
[2023-08-12] MEDS: IRON SUCROSE INJECTION 200 MG in SODIUM CHLORIDE 100 ML IVPB ONE (19:53)
[2023-08-13 08:43] LABS: BASO % 0.4 % (0-2.0); EOS % 1.2 % (0-4.5); HEMATOCRIT 28.9 % (32.4-45.2); LYMPH % 15.1 % (8-40); MCH 26.8 pg (25.7-33.7); MCHC 31.2 g/dl (32.0-36.0); MEAN CELL VOLUME 86.1 fl (80-96); MEAN PLT VOLUME 8.3 fl (7.5-11.1); MONO % 16.8 % (3.8-10.2); NEUT % 66.5 % (42.8-82.8); PLATELET COUNT 238 10^3/uL (134-434); RBC 3.36 M/mm3 (3.60-5.2); RDW 18.3 % (11.6-15.6); WHITE BLOOD COUNT 7.7 K/mm3 (4.0-10.0)
[2023-08-13 08:49] LABS: POTASSIUM 4.9 mmol/L (3.5-5.1)
[2023-08-13 08:51] LABS: ALBUMIN 2.5 g/dl (3.4-5.0)
[2023-08-13 08:52] LABS: BLOOD UREA NITROGEN 89.2 mg/dL (7-18); CALCIUM 8.7 mg/dL (8.5-10.1)
[2023-08-13 08:54] LABS: CREATININE 2.9 mg/dL (0.55-1.3)
[2023-08-13 08:56] LABS: TOT PROT 6.2 g/dl (6.4-8.2)
[2023-08-13 09:00] LABS: BILIRUBIN,TOTAL 0.7 mg/dL (0.2-1)
[2023-08-13] MEDS: DAPTOMYCIN 450 MG in SODIUM CHLORIDE 50 ML IVPB SCH (21:53)
[2023-08-14 08:09] LABS: BASO % 1.2 % (0-2.0); EOS % 2.2 % (0-4.5); HEMATOCRIT 28.3 % (32.4-45.2); HEMOGLOBIN 8.5 GM/dL (10.7-15.3); LYMPH % 12.1 % (8-40); MCH 26.3 pg (25.7-33.7); MCHC 30.2 g/dl (32.0-36.0); MEAN CELL VOLUME 87.2 fl (80-96); MEAN PLT VOLUME 8.5 fl (7.5-11.1); MONO % 17.3 % (3.8-10.2); NEUT % 67.2 % (42.8-82.8); PLATELET COUNT 226 10^3/uL (134-434); RBC 3.24 M/mm3 (3.60-5.2); RDW 18.9 % (11.6-15.6); WHITE BLOOD COUNT 10.5 K/mm3 (4.0-10.0)
[2023-08-14 08:18] LABS: POTASSIUM 5.5 mmol/L (3.5-5.1)
[2023-08-14 08:20] LABS: ALBUMIN 2.4 g/dl (3.4-5.0); BLOOD UREA NITROGEN 94.6 mg/dL (7-18); CALCIUM 8.6 mg/dL (8.5-10.1)
[2023-08-14 08:24] LABS: CREATININE 3.1 mg/dL (0.55-1.3)
[2023-08-14 08:26] LABS: BILIRUBIN,TOTAL 0.4 mg/dL (0.2-1)
[2023-08-14] MEDS: POLYETHYLENE GLYCOL (HEALTHYLAX) 3350 17 GM PACKET PO SCH (10:38)
[2023-08-14] MEDS: PANTOPRAZOLE 20 MG TABLET PO SCH (10:38)
[2023-08-14] MEDS: SODIUM ZIRCONIUM CYCLOSILICATE (LOKELMA) 5 GM PACKET PO SCH (15:00)
[2023-08-14] MEDS: FUROSEMIDE 40 MG/4 ML INJECTABLE VIAL IVPUSH ONE (16:02)
[2023-08-14] MEDS: ALBUTEROL SO4 2.5/IPRATROPIUM 0.5 INH SOL 3 ML VIAL.NEB. NEB SCH (20:05)
[2023-08-16 07:38] LABS: BASO % 0.2 % (0-2.0); EOS % 1.2 % (0-4.5); HEMATOCRIT 27.5 % (32.4-45.2); HEMOGLOBIN 8.2 GM/dL (10.7-15.3); LYMPH % 9.4 % (8-40); MCH 26.4 pg (25.7-33.7); MEAN CELL VOLUME 88.2 fl (80-96); MEAN PLT VOLUME 8.4 fl (7.5-11.1); NEUT % 74.2 % (42.8-82.8); PLATELET COUNT 220 10^3/uL (134-434); RBC 3.12 M/mm3 (3.60-5.2); RDW 19.2 % (11.6-15.6); WHITE BLOOD COUNT 10.8 K/mm3 (4.0-10.0)
[2023-08-16 07:53] LABS: CHLORIDE 114 mmol/L (98-107); SODIUM 146 mmol/L (136-145)
[2023-08-16 08:02] LABS: ANION GAP 3 mmol/L (4-13); CO2 29 mmol/L (21-32); GLUCOSE,RANDOM 122 mg/dL (74-106)
[2023-08-16 08:04] LABS: CREATININE 3.3 mg/dL (0.55-1.3)
[2023-08-16 08:07] LABS: BLOOD UREA NITROGEN 106.4 mg/dL (7-18); CALCIUM 8.3 mg/dL (8.5-10.1)
[2023-08-16 15:13] VITALS: BMI 30.8
[2023-08-16] MEDS: FUROSEMIDE 40 MG/4 ML INJECTABLE VIAL IVPUSH ONE (16:41)
[2023-08-16] MEDS: FUROSEMIDE 40 MG/4 ML INJECTABLE VIAL IVPUSH SCH (21:30)
[2023-08-17] MEDS ORDERED: FUROSEMIDE 40 MG/4 ML INJECTABLE VIAL IVPUSH SCH (06:00)
[2023-08-17] MEDS: DEXTROSE 5%-WATER - 1,000 ML IV SCH (08:54)
[2023-08-17 09:04] LABS: BASO % 0.6 % (0-2.0); EOS % 2.4 % (0-4.5); HEMATOCRIT 28.6 % (32.4-45.2); HEMOGLOBIN 8.4 GM/dL (10.7-15.3); LYMPH % 10.4 % (8-40); MCH 26.1 pg (25.7-33.7); MCHC 29.3 g/dl (32.0-36.0); MEAN PLT VOLUME 8.7 fl (7.5-11.1); MONO % 11.6 % (3.8-10.2); PLATELET COUNT 214 10^3/uL (134-434); RBC 3.22 M/mm3 (3.60-5.2); RDW 19.4 % (11.6-15.6); WHITE BLOOD COUNT 8.4 K/mm3 (4.0-10.0)
[2023-08-17 09:18] LABS: CHLORIDE 113 mmol/L (98-107); SODIUM 145 mmol/L (136-145)
[2023-08-17 09:26] LABS: CALCIUM 8.6 mg/dL (8.5-10.1)
[2023-08-17 09:27] LABS: BLOOD UREA NITROGEN 103.4 mg/dL (7-18); CO2 28 mmol/L (21-32)
[2023-08-17 09:28] LABS: GLUCOSE,RANDOM 103 mg/dL (74-106)
[2023-08-17 09:31] LABS: CREATININE 3.6 mg/dL (0.55-1.3)
[2023-08-17 09:34] LABS: ANION GAP 4 mmol/L (4-13); POTASSIUM 6.3 mmol/L (3.5-5.1)
[2023-08-17] MEDS: SODIUM ZIRCONIUM CYCLOSILICATE (LOKELMA) 10 GM PACKET PO SCH (12:58)
[2023-08-17] MEDS: traMADol HCL 50 MG TABLET PO PRN (16:39)
[2023-08-17] MEDS: ALBUMIN HUMAN 25% 100 ML VIAL IV ONE (18:04)
[2023-08-17] MEDS: SODIUM ZIRCONIUM CYCLOSILICATE (LOKELMA) 5 GM PACKET PO SCH (21:40)
[2023-08-18 09:45] LABS: CHLORIDE 114 mmol/L (98-107); POTASSIUM 5.9 mmol/L (3.5-5.1); SODIUM 148 mmol/L (136-145)
[2023-08-18 09:58] LABS: ANION GAP 6 mmol/L (4-13); CALCIUM 9.3 mg/dL (8.5-10.1); CO2 28 mmol/L (21-32); GLUCOSE,RANDOM 97 mg/dL (74-106)
[2023-08-18 10:00] LABS: CREATININE 3.5 mg/dL (0.55-1.3); SGOT/AST 26 U/L (15-37); SGPT/ALT 21 U/L (13-61)
[2023-08-18 10:01] LABS: BILIRUBIN,TOTAL 0.5 mg/dL (0.2-1); TOT PROT 6.4 g/dl (6.4-8.2)
[2023-08-18 10:02] LABS: ALK PHOS 88 U/L (45-117)
[2023-08-18 10:05] LABS: BLOOD UREA NITROGEN 111.1 mg/dL (7-18)
[2023-08-18] MEDS: METOLAZONE 2.5 MG TABLET (FP) PO ONE (12:10)
[2023-08-18] MEDS: FUROSEMIDE 40 MG/4 ML INJECTABLE VIAL IVPUSH SCH (14:08)
[2023-08-19] MEDS: DEXTROSE 5%-WATER - 1,000 ML IV SCH (16:26)
[2023-08-19 21:19] LABS: CHLORIDE 111 mmol/L (98-107); POTASSIUM 5.3 mmol/L (3.5-5.1); SODIUM 146 mmol/L (136-145)
[2023-08-19 21:20] LABS: ANION GAP 9 mmol/L (4-13); CALCIUM 8.9 mg/dL (8.5-10.1); CO2 26 mmol/L (21-32); GLUCOSE,RANDOM 146 mg/dL (74-106)
[2023-08-19 21:24] LABS: CREATININE 3.6 mg/dL (0.55-1.3)
[2023-08-19 21:27] LABS: BLOOD UREA NITROGEN 122.6 mg/dL (7-18)
[2023-08-20 09:58] VITALS: RESP 20
[2023-08-20 14:55] VITALS: BP 137/61; PULSE 103; TEMP 98.2
== END 2023-08-20 16:19 | DRG 698 ==
LOC: JER 14:56 → JERBED 19:43 → J8W 08-11 22:25
PROVIDERS: ADMIT Internal Medicine; ATTEND Family Medicine
PROC: 30233N1 Transfusion of Nonautologous Red Blood Cells into Peripheral Vein, Percutaneous Approach (ICD-10-PCS; 2023-08-11)
PROC: 05HB33Z Insertion of Infusion Device into Right Basilic Vein, Percutaneous Approach (ICD-10-PCS; principal; 2023-08-20)
PROC: B54MZZA Ultrasonography of Right Upper Extremity Veins, Guidance (ICD-10-PCS; 2023-08-20)
PROC: 0T25X0Z Change Drainage Device in Kidney, External Approach (ICD-10-PCS; 2023-08-20)
DX: T83.512A Infection and inflammatory reaction due to nephrostomy catheter, initial encounter (principal); I50.33 Acute on chronic diastolic (congestive) heart failure; N39.0 Urinary tract infection, site not specified; I13.0 Hypertensive heart and chronic kidney disease with heart failure and stage 1 through stage 4 chronic kidney disease, or unspecified chronic kidney disease; N18.4 Chronic kidney disease, stage 4 (severe); N17.9 Acute kidney failure, unspecified; E87.5 Hyperkalemia; M10.9 Gout, unspecified; D64.9 Anemia, unspecified; F03.90 Unspecified dementia, unspecified severity, without behavioral disturbance, psychotic disturbance, mood disturbance, and anxiety; T83.032A Leakage of nephrostomy catheter, initial encounter; N31.9 Neuromuscular dysfunction of bladder, unspecified; E87.70 Fluid overload, unspecified; I35.1 Nonrheumatic aortic (valve) insufficiency; E11.22 Type 2 diabetes mellitus with diabetic chronic kidney disease; B96.1 Klebsiella pneumoniae [K. pneumoniae] as the cause of diseases classified elsewhere; B96.89 Other specified bacterial agents as the cause of diseases classified elsewhere; B96.5 Pseudomonas (aeruginosa) (mallei) (pseudomallei) as the cause of diseases classified elsewhere; I27.20 Pulmonary hypertension, unspecified; I48.91 Unspecified atrial fibrillation; J44.9 Chronic obstructive pulmonary disease, unspecified; Y83.8 Other surgical procedures as the cause of abnormal reaction of the patient, or of later complication, without mention of misadventure at the time of the procedure
CPT/HCPCS: 0241U-QW; 36415; 36430; 50435; 71045-TC-FY; 80048; 80053; 81003; 82550; 82728; 83540; 83550; 83735; 83880; 84100; 85025; 85027; 85610; 85730; 86850; 86900; 86901; 86922; 87040; 87086; 87186; 87635; 93005; 93010; 94640; 97116-GP; 97161-GP; 99285-25; G0463; G0480; J0878; J1644; J1756; P9058

== ENCOUNTER 2023-09-14 13:13 | Inpatient (IN) | payer OTHER ==
[2023-09-14 18:12] LABS: INR 1.04 (0.83-1.09); PROTHROMBIN TIME (PATIENT) 12.1 SEC (9.7-13.0)
[2023-09-14 18:14] LABS: BASO % 0.4 % (0-2.0); EOS % 0.2 % (0-4.5); HEMOGLOBIN 8.7 GM/dL (10.7-15.3); LYMPH % 6.9 % (8-40); MCH 27.1 pg (25.7-33.7); MCHC 29.2 g/dl (32.0-36.0); MEAN CELL VOLUME 93.1 fl (80-96); MEAN PLT VOLUME 9.8 fl (7.5-11.1); MONO % 8.4 % (3.8-10.2); NEUT % 84.1 % (42.8-82.8); PLATELET COUNT 211 10^3/uL (134-434); RBC 3.22 M/mm3 (3.60-5.2); RDW 23.3 % (11.6-15.6); WHITE BLOOD COUNT 8.8 K/mm3 (4.0-10.0)
[2023-09-14 18:14] LABS: ACTIVATED PTT 23.4 SECONDS (25.2-36.5)
[2023-09-14 18:24] LABS: CHLORIDE 117 mmol/L (98-107); POTASSIUM 3.6 mmol/L (3.5-5.1)
[2023-09-14 18:26] LABS: CALCIUM 8.2 mg/dL (8.5-10.1)
[2023-09-14 18:27] LABS: ALBUMIN 2.3 g/dl (3.4-5.0); BLOOD UREA NITROGEN 101.8 mg/dL (7-18); CO2 37 mmol/L (21-32); GLUCOSE,RANDOM 131 mg/dL (74-106); MAGNESIUM 2.3 mg/dL (1.8-2.4)
[2023-09-14 18:30] LABS: CREATININE 2.5 mg/dL (0.55-1.3); SGOT/AST 27 U/L (15-37); SGPT/ALT 14 U/L (13-61)
[2023-09-14 18:31] LABS: TOT PROT 5.9 g/dl (6.4-8.2)
[2023-09-14 18:32] LABS: BILIRUBIN,TOTAL 0.4 mg/dL (0.2-1)
[2023-09-14 18:33] LABS: ALK PHOS 100 U/L (45-117)
[2023-09-14 18:50] LABS: ANION GAP 8 mmol/L (4-13); SODIUM 161 mmol/L (136-145)
[2023-09-14 19:00] LABS: ANISOCYTOSIS 2+; MACROCYTOSIS 1+; OVALOCYTE 1+
[2023-09-14 19:03] LABS: PLATELET ESTIMATE ADEQUATE
[2023-09-14] MEDS ORDERED: FUROSEMIDE 40 MG/4 ML INJECTABLE VIAL ONE ×2 (19:09→19:13)
[2023-09-14] MEDS: FUROSEMIDE 40 MG/4 ML INJECTABLE VIAL IVPUSH ONE (19:10)
[2023-09-14] MEDS ORDERED: BACITRACIN ZINC 15 GM TUBE TOPICAL OINTMENT ONE (20:20)
[2023-09-14 20:51] LABS: EPI CELLS 18 /uL (0-25.1); HYALINE CASTS 5 /uL (0-3.1); URINE APPEARANCE TURBID; URINE BACTERIA >9,000 /uL (0-1359); URINE BILIRUBIN NEGATIVE (NEGATIVE); URINE COLOR ORANGE; URINE GLUCOSE (UA) NEGATIVE (NEGATIVE); URINE KETONE NEGATIVE (NEGATIVE); URINE LEUK ESTERASE 3+ (NEGATIVE); URINE NITRITE NEGATIVE (NEGATIVE); URINE PROTEIN 3+ (NEGATIVE); URINE WBC 6865 /uL (0-25.8)
[2023-09-14] MEDS ORDERED: ACETAMINOPHEN INJECTION 100 ML IVPB ONE (22:26)
[2023-09-14] MEDS: ACETAMINOPHEN 1000 MG/100 ML BAG IVPB ONE (22:35)
[2023-09-14] MEDS: morphine CARPU-JECT 2 MG/1 ML DISP.SYRIN IVPUSH ONE (22:35)
[2023-09-14 22:38] LABS: URINE RBC 2095.1 /uL (0-23.9); YEAST FEW (NEGATIVE)
[2023-09-15] MEDS ORDERED: KCL 10 MEQ IVPB 10 MEQ/100 ML INFUS.BAG IVPB ONE (01:18)
[2023-09-15] MEDS: DEXTROSE 5%-WATER - 1,000 ML IV SCH ×3 (01:36→17:44)
[2023-09-15] MEDS: KCL 10 MEQ IVPB 10 MEQ/100 ML INFUS.BAG IVPB SCH (01:36)
[2023-09-15] MEDS ORDERED: CEFTRIAXONE 1 GM/50 ML BAG ONE (02:23)
[2023-09-15] MEDS: CEFTRIAXONE 1,000 MG in DEXTROSE 5%-WATER - 50 ML IVPB ONE (02:31)
[2023-09-15] MEDS ORDERED: MEROPENEM 1 GM VIAL (RESTRICTED TO ID) IVPB ONE (05:02)
[2023-09-15] MEDS ORDERED: HEPARIN NA (PORCINE) 5,000 UNITS/ML 1ML VIAL ONE (05:03)
[2023-09-15] MEDS ORDERED: DEXTROSE 5%-WATER 100 ML IVPB ONE (05:04)
[2023-09-15] MEDS: MEROPENEM 500 MG in DEXTROSE 5%-WATER 100 ML IVPB SCH (05:22)
[2023-09-15] MEDS: HEPARIN NA (PORCINE) 5,000 UNITS/ML 1ML VIAL SQ SCH (05:22)
[2023-09-15] MEDS: LINEZOLID 600 MG PREMIX BAG 600 MG/300 ML BAG IVPB SCH ×2 (07:32→09:12)
[2023-09-15] MEDS: SODIUM ZIRCONIUM CYCLOSILICATE (LOKELMA) 5 GM PACKET PO SCH (09:11)
[2023-09-15] MEDS: FUROSEMIDE 40 MG TABLET (FP) PO SCH (09:11)
[2023-09-15] MEDS: ATORVASTATIN CA 20 MG TABLET (FP) PO SCH (09:11)
[2023-09-15 09:42] LABS: BASO % 0.2 % (0-2.0); EOS % 0.5 % (0-4.5); HEMOGLOBIN 8.8 GM/dL (10.7-15.3); LYMPH % 11.5 % (8-40); MCH 26.9 pg (25.7-33.7); MCHC 29.2 g/dl (32.0-36.0); MEAN CELL VOLUME 92.4 fl (80-96); MEAN PLT VOLUME 9.2 fl (7.5-11.1); MONO % 12.9 % (3.8-10.2); NEUT % 74.9 % (42.8-82.8); PLATELET COUNT 170 10^3/uL (134-434); RBC 3.25 M/mm3 (3.60-5.2); RDW 22.9 % (11.6-15.6)
[2023-09-15 09:59] LABS: CHLORIDE 118 mmol/L (98-107); POTASSIUM 3.9 mmol/L (3.5-5.1)
[2023-09-15 10:00] LABS: CALCIUM 8.1 mg/dL (8.5-10.1)
[2023-09-15] MEDS ORDERED: MEROPENEM 500 MG in DEXTROSE 5%-WATER 100 ML IVPB SCH (10:00)
[2023-09-15] MEDS ORDERED: LINEZOLID 600 MG PREMIX BAG 600 MG in PREMIX 300 IVPB SCH (10:00)
[2023-09-15 10:01] LABS: BLOOD UREA NITROGEN 101.4 mg/dL (7-18); CO2 38 mmol/L (21-32); GLUCOSE,RANDOM 123 mg/dL (74-106); MAGNESIUM 2.2 mg/dL (1.8-2.4)
[2023-09-15 10:04] LABS: CREATININE 2.5 mg/dL (0.55-1.3); PHOSPHOROUS 4.6 mg/dL (2.5-4.9)
[2023-09-15 10:06] LABS: IRON SERUM 35 ug/dL (50-175); TOTAL IRON BINDING CAPACITY 181 ug/dL (250-450)
[2023-09-15 10:13] LABS: ANION GAP 5 mmol/L (4-13); SODIUM 161 mmol/L (136-145)
[2023-09-15] MEDS: ALBUTEROL SO4 2.5/IPRATROPIUM 0.5 INH SOL 3 ML VIAL.NEB. NEB SCH (11:00)
[2023-09-15] MEDS: PIPERACILLIN/TAZOB 2.25 GM 2.25 GM in DEXTROSE 5%-WATER - 50 ML IVPB SCH (16:28)
[2023-09-15] MEDS: ACETAMINOPHEN 325 MG TABLET (FP) PO PRN (17:36)
[2023-09-16 07:43] LABS: HEMATOCRIT 28.9 % (32.4-45.2); HEMOGLOBIN 8.5 GM/dL (10.7-15.3); MCH 26.8 pg (25.7-33.7); MCHC 29.4 g/dl (32.0-36.0); MEAN CELL VOLUME 91.1 fl (80-96); MEAN PLT VOLUME 9.7 fl (7.5-11.1); PLATELET COUNT 184 10^3/uL (134-434); RBC 3.17 M/mm3 (3.60-5.2); RDW 22.7 % (11.6-15.6)
[2023-09-16 07:46] LABS: BASO % 0.3 % (0-2.0); EOS % 0.2 % (0-4.5); HEMATOCRIT 28.2 % (32.4-45.2); HEMOGLOBIN 8.4 GM/dL (10.7-15.3); LYMPH % 11.6 % (8-40); MCH 26.7 pg (25.7-33.7); MCHC 29.8 g/dl (32.0-36.0); MEAN CELL VOLUME 89.4 fl (80-96); MEAN PLT VOLUME 9.9 fl (7.5-11.1); MONO % 10.9 % (3.8-10.2); PLATELET COUNT 179 10^3/uL (134-434); RBC 3.15 M/mm3 (3.60-5.2); WHITE BLOOD COUNT 8.1 K/mm3 (4.0-10.0)
[2023-09-16 08:27] LABS: POTASSIUM 3.7 mmol/L (3.5-5.1)
[2023-09-16 08:43] LABS: ALBUMIN 2.4 g/dl (3.4-5.0); CALCIUM 8.7 mg/dL (8.5-10.1)
[2023-09-16 08:44] LABS: BLOOD UREA NITROGEN 98.8 mg/dL (7-18)
[2023-09-16 08:47] LABS: CREATININE 2.5 mg/dL (0.55-1.3)
[2023-09-16 08:49] LABS: BILIRUBIN,TOTAL 0.5 mg/dL (0.2-1)
[2023-09-16] MEDS ORDERED: MEROPENEM 500 MG in DEXTROSE 5%-WATER 100 ML IVPB SCH (10:00)
[2023-09-16] MEDS ORDERED: LINEZOLID 600 MG PREMIX BAG 600 MG/300 ML BAG IVPB SCH (10:00)
[2023-09-16] MEDS: IRON SUCROSE INJECTION 200 MG in SODIUM CHLORIDE 100 ML IVPB ONE (10:48)
[2023-09-16] MEDS: DEXTROSE 5%-WATER - 1,000 ML IV SCH (12:27)
[2023-09-16] MEDS: SODIUM ZIRCONIUM CYCLOSILICATE (LOKELMA) 5 GM PACKET PO SCH (12:27)
[2023-09-16 14:37] VITALS: BMI 24.1
[2023-09-16] MEDS: PANTOPRAZOLE SODIUM 40 MG VIAL IVPUSH SCH (17:07)
[2023-09-16] MEDS: ONDANSETRON 4 MG/2 ML VIAL IVPUSH PRN (17:07)
[2023-09-16 19:34] LABS: BASO % 0.3 % (0-2.0); EOS % 0.3 % (0-4.5); HEMATOCRIT 27.2 % (32.4-45.2); MCH 26.9 pg (25.7-33.7); MCHC 29.6 g/dl (32.0-36.0); MEAN CELL VOLUME 91.1 fl (80-96); MEAN PLT VOLUME 9.2 fl (7.5-11.1); MONO % 13.3 % (3.8-10.2); NEUT % 77.1 % (42.8-82.8); PLATELET COUNT 166 10^3/uL (134-434); RBC 2.98 M/mm3 (3.60-5.2); RDW 22.9 % (11.6-15.6); WHITE BLOOD COUNT 8.4 K/mm3 (4.0-10.0)
[2023-09-16 20:15] LABS: POTASSIUM 3.7 mmol/L (3.5-5.1)
[2023-09-16 20:18] LABS: BLOOD UREA NITROGEN 98.6 mg/dL (7-18); CALCIUM 8.5 mg/dL (8.5-10.1)
[2023-09-16 20:19] LABS: ALBUMIN 2.2 g/dl (3.4-5.0)
[2023-09-16 20:21] LABS: CREATININE 2.6 mg/dL (0.55-1.3)
[2023-09-16 20:23] LABS: BILIRUBIN,TOTAL 0.5 mg/dL (0.2-1); TOT PROT 5.6 g/dl (6.4-8.2)
[2023-09-17 07:30] LABS: POTASSIUM 3.8 mmol/L (3.5-5.1)
[2023-09-17 07:33] LABS: CALCIUM 8.5 mg/dL (8.5-10.1)
[2023-09-17 07:34] LABS: ALBUMIN 2.3 g/dl (3.4-5.0); BLOOD UREA NITROGEN 97.2 mg/dL (7-18)
[2023-09-17 07:37] LABS: CREATININE 2.7 mg/dL (0.55-1.3)
[2023-09-17 07:39] LABS: TOT PROT 5.8 g/dl (6.4-8.2)
[2023-09-17 07:56] LABS: BILIRUBIN,TOTAL 0.5 mg/dL (0.2-1)
[2023-09-17 12:25] LABS: BASO % 0.2 % (0-2.0); EOS % 0.9 % (0-4.5); HEMATOCRIT 27.9 % (32.4-45.2); HEMOGLOBIN 8.3 GM/dL (10.7-15.3); LYMPH % 11.7 % (8-40); MCH 27.3 pg (25.7-33.7); MCHC 29.8 g/dl (32.0-36.0); MEAN CELL VOLUME 91.7 fl (80-96); MEAN PLT VOLUME 9.5 fl (7.5-11.1); MONO % 12.1 % (3.8-10.2); NEUT % 75.1 % (42.8-82.8); PLATELET COUNT 164 10^3/uL (134-434); RBC 3.05 M/mm3 (3.60-5.2); RDW 22.8 % (11.6-15.6)
[2023-09-17 12:43] LABS: POTASSIUM 3.9 mmol/L (3.5-5.1)
[2023-09-17 12:45] LABS: ALBUMIN 2.4 g/dl (3.4-5.0); BLOOD UREA NITROGEN 94.8 mg/dL (7-18); CALCIUM 8.3 mg/dL (8.5-10.1)
[2023-09-17 12:48] LABS: CREATININE 2.7 mg/dL (0.55-1.3)
[2023-09-17 12:50] LABS: BILIRUBIN,TOTAL 0.6 mg/dL (0.2-1); TOT PROT 5.9 g/dl (6.4-8.2)
[2023-09-18 07:07] LABS: BASO % 0.2 % (0-2.0); EOS % 0.9 % (0-4.5); HEMATOCRIT 26.6 % (32.4-45.2); LYMPH % 11.5 % (8-40); MCH 27.3 pg (25.7-33.7); MCHC 29.9 g/dl (32.0-36.0); MEAN CELL VOLUME 91.4 fl (80-96); MEAN PLT VOLUME 9.5 fl (7.5-11.1); MONO % 14.3 % (3.8-10.2); NEUT % 73.1 % (42.8-82.8); PLATELET COUNT 171 10^3/uL (134-434); RBC 2.91 M/mm3 (3.60-5.2); RDW 22.2 % (11.6-15.6); WHITE BLOOD COUNT 8.7 K/mm3 (4.0-10.0)
[2023-09-18 07:22] LABS: POTASSIUM 3.7 mmol/L (3.5-5.1)
[2023-09-18 07:25] LABS: CALCIUM 8.1 mg/dL (8.5-10.1)
[2023-09-18 07:26] LABS: ALBUMIN 2.3 g/dl (3.4-5.0); BLOOD UREA NITROGEN 92.5 mg/dL (7-18)
[2023-09-18 07:29] LABS: CREATININE 2.9 mg/dL (0.55-1.3)
[2023-09-18 07:31] LABS: BILIRUBIN,TOTAL 0.5 mg/dL (0.2-1); TOT PROT 5.7 g/dl (6.4-8.2)
[2023-09-18 09:43] LABS: ANISOCYTOSIS 3+; MACROCYTOSIS 0; OVALOCYTE 1+
[2023-09-18] MEDS: DEXTROSE 5%-WATER - 1,000 ML IV SCH (17:51)
[2023-09-19 11:43] LABS: POTASSIUM 3.9 mmol/L (3.5-5.1)
[2023-09-19 11:46] LABS: ALBUMIN 2.1 g/dl (3.4-5.0); CALCIUM 7.9 mg/dL (8.5-10.1)
[2023-09-19 11:50] LABS: CREATININE 3.4 mg/dL (0.55-1.3)
[2023-09-19 11:51] LABS: BILIRUBIN,TOTAL 0.6 mg/dL (0.2-1); TOT PROT 5.6 g/dl (6.4-8.2)
[2023-09-20] MEDS: AMOX TR/POT CLAV 500MG/125MG TABLETS (FP) PO SCH (21:36)
[2023-09-20] MEDS ORDERED: AMOX TR/POT CLAV 875MG/125MG TABLETS (FP) PO SCH ×2 (22:00)
[2023-09-21] MEDS: CEFUROXIME AXETIL 250 MG TABLET PO SCH (10:56)
[2023-09-21] MEDS: DEXTROSE 5%-WATER - 1,000 ML IV SCH (12:19)
[2023-09-21 12:57] LABS: POTASSIUM 4.2 mmol/L (3.5-5.1)
[2023-09-21 12:59] LABS: CALCIUM 7.2 mg/dL (8.5-10.1)
[2023-09-21 13:00] LABS: BLOOD UREA NITROGEN 98.3 mg/dL (7-18)
[2023-09-21 13:03] LABS: CREATININE 4.3 mg/dL (0.55-1.3)
[2023-09-21] MEDS: VITAMIN B COMP W-C 1 EA TABLET (NEPHRO-VITE) PO SCH (14:38)
[2023-09-21] MEDS: AMINO ACIDS/PROTEIN HYDROLYS 30 ML LIQUID.PKT PO SCH (17:05)
[2023-09-21 18:45] LABS: BASO % 0.3 % (0-2.0); EOS % 0.5 % (0-4.5); HEMATOCRIT 27.1 % (32.4-45.2); LYMPH % 8.1 % (8-40); MCH 26.7 pg (25.7-33.7); MCHC 29.5 g/dl (32.0-36.0); MEAN CELL VOLUME 90.4 fl (80-96); MEAN PLT VOLUME 8.3 fl (7.5-11.1); MONO % 17.8 % (3.8-10.2); NEUT % 73.3 % (42.8-82.8); PLATELET COUNT 189 10^3/uL (134-434); RDW 21.7 % (11.6-15.6); WHITE BLOOD COUNT 8.1 K/mm3 (4.0-10.0)
[2023-09-22 08:30] LABS: POTASSIUM 3.9 mmol/L (3.5-5.1)
[2023-09-22 08:35] LABS: ALBUMIN 2.2 g/dl (3.4-5.0); BLOOD UREA NITROGEN 102.3 mg/dL (7-18); CALCIUM 7.5 mg/dL (8.5-10.1)
[2023-09-22 08:38] LABS: CREATININE 4.6 mg/dL (0.55-1.3); TOT PROT 5.7 g/dl (6.4-8.2)
[2023-09-22 08:39] LABS: BILIRUBIN,TOTAL 0.4 mg/dL (0.2-1)
[2023-09-22] MEDS: PANTOPRAZOLE 40 MG TABLET PO SCH (10:15)
[2023-09-22] MEDS: FUROSEMIDE 40 MG TABLET (FP) PO SCH (12:42)
[2023-09-23] MEDS: FUROSEMIDE 40 MG TABLET (FP) PO SCH (13:59)
[2023-09-24 07:13] VITALS: RESP 20
[2023-09-24 07:13] LABS: BASO % 0.3 % (0-2.0); EOS % 0.7 % (0-4.5); HEMATOCRIT 25.5 % (32.4-45.2); HEMOGLOBIN 7.7 GM/dL (10.7-15.3); LYMPH % 7.5 % (8-40); MCH 27.1 pg (25.7-33.7); MCHC 30.2 g/dl (32.0-36.0); MEAN CELL VOLUME 89.8 fl (80-96); MONO % 16.7 % (3.8-10.2); NEUT % 74.8 % (42.8-82.8); PLATELET COUNT 179 10^3/uL (134-434); RBC 2.84 M/mm3 (3.60-5.2); RDW 21.1 % (11.6-15.6); WHITE BLOOD COUNT 7.3 K/mm3 (4.0-10.0)
[2023-09-24 07:16] LABS: CHLORIDE 101 mmol/L (98-107); POTASSIUM 4.3 mmol/L (3.5-5.1); SODIUM 141 mmol/L (136-145)
[2023-09-24 07:27] LABS: ALBUMIN 2.1 g/dl (3.4-5.0); ANION GAP 10 mmol/L (4-13); CALCIUM 7.3 mg/dL (8.5-10.1); CO2 29 mmol/L (21-32); GLUCOSE,RANDOM 124 mg/dL (74-106)
[2023-09-24 07:29] LABS: CREATININE 5.2 mg/dL (0.55-1.3); SGOT/AST 20 U/L (15-37); SGPT/ALT 12 U/L (13-61)
[2023-09-24 07:31] LABS: BILIRUBIN,TOTAL 0.4 mg/dL (0.2-1); TOT PROT 5.5 g/dl (6.4-8.2)
[2023-09-24 07:32] LABS: ALK PHOS 87 U/L (45-117)
[2023-09-24 15:44] VITALS: BP 138/52; PULSE 92; TEMP 97.3
== END 2023-09-24 16:54 | disposition hospice, inpatient (51) | DRG 291 ==
LOC: JER 13:13 → JERBED 19:20 → J4S 09-15 06:18
PROVIDERS: ADMIT Internal Medicine; ATTEND Internal Medicine
PROC: 0T25X0Z Change Drainage Device in Kidney, External Approach (ICD-10-PCS; principal; 2023-09-17)
DX: I13.2 Hypertensive heart and chronic kidney disease with heart failure and with stage 5 chronic kidney disease, or end stage renal disease (principal); N18.6 End stage renal disease; E87.0 Hyperosmolality and hypernatremia; Z68.1 Body mass index [BMI] 19.9 or less, adult; N39.0 Urinary tract infection, site not specified; N17.9 Acute kidney failure, unspecified; N13.30 Unspecified hydronephrosis; I50.22 Chronic systolic (congestive) heart failure; J44.9 Chronic obstructive pulmonary disease, unspecified; F03.90 Unspecified dementia, unspecified severity, without behavioral disturbance, psychotic disturbance, mood disturbance, and anxiety; D64.9 Anemia, unspecified; E78.5 Hyperlipidemia, unspecified; I48.91 Unspecified atrial fibrillation
CPT/HCPCS: 0241U-QW; 36415; 50431; 50435; 70450-TC; 71045-TC-FY; 72125-TC; 72170-TC-FY; 72192-TC; 74018-TC-FY; 74176-TC; 76700-TC; 76775-TC; 76856-TC; 80048; 80053; 81003; 82272; 82550; 82728; 83540; 83550; 83690; 83735; 83880; 84100; 84484; 85025; 85027; 85610; 85730; 86850; 86900; 86901; 87040; 87086; 87186; 93005; 93010; 93971; 94640; 99285-25; J0131; J1644; J1756